=== PATIENT | female | born 1950 | race Hispanic/Latino ===

== ENCOUNTER 2017-09-28 07:44 | Inpatient (IN) | payer BC, MEDICARE ==
[2017-09-28] MEDS ORDERED: Albuterol-Ipratrop 3 mg / 0.5 (3 ml) UD IH STA (08:30)
--- NOTE | 2017-09-28 08:44 | ED PDOC ---
Arrival/HPI - General Chief Complaint: Female Genitourinary Time Seen by Provider: 09/28/17 07:53 Historian: Patient, Spouse - History of Present Illness Narrative History of Present Illness (Text): 09/28/17 08:42 Patient is a 67 yo female past medical history of copd, smoker, presents to ED from Dr. Ferguson's office for evaluation of "depression". Patient states "I've been depressed" but states over the past two weeks she has had difficulty with urinary incontinence and "over the past couple days she has been more confused and hasn't been acting herself". She reports chronic shortness of breath and states she is "short of breath all the time". She denies headache or chest pain or abdominal pain. She reports foul-smelling urine. Also reports back pain that has been present on and off for several months. Denies hemoptysis. Denies hematuria. Denies calf pain or swelling. Time/Duration: > week Symptom Onset: Gradual Symptom Course: Worsening Activities at Onset: Light Past Medical History - Provider Review Nursing Documentation Reviewed: Yes - Tetanus Immunization Tetanus Immunization: Unknown - Cardiac Hx Hypertension: Yes - Pulmonary Hx Respiratory Disorders: No - Neurological Hx Neurological Disorder: Yes Hx Dementia: Yes - HEENT Hx HEENT Disorder: Yes Hx Cataracts: Yes - Renal Hx Renal Disorder: No - Endocrine/Metabolic Hx Endocrine Disorders: No - Hematological/Oncological Hx Blood Disorders: No - Integumentary Hx Dermatological Disorder: No - Musculoskeletal/Rheumatological Hx Musculoskeletal Disorders: No - Gastrointestinal Hx Gastrointestinal Disorders: No - Genitourinary/Gynecological Hx Genitourinary Disorders: No - Psychiatric Hx Psychophysiologic Disorder: Yes Hx Anxiety: Yes Hx Bipolar Disorder: Yes Hx Depression: Yes Hx Hallucinations: Yes Hx Psychosis: Yes Hx Substance Use: No - Suicidal Assessment Feels Threatened In Home Enviroment: No Family/Social History - Physician Review Nursing Documentation Reviewed: Yes Family/Social History: No Known Family HX Smoking Status: Current Some Days Smoker Hx Alcohol Use: No Hx Substance Use: No Hx Substance Use Treatment: No Allergies/Home Meds Allergies/Adverse Reactions: Allergies No Known Allergies Allergy (Verified 09/28/17 13:11) Home Medications: Home Meds Medication Instructions Recorded Confirmed Aspirin [Aspirin Chewable] 81 mg PO DAILY 09/28/17 09/28/17 Calcium Carbonate/Vitamin D3 1 tab PO DAILY 09/28/17 09/28/17 [Calcium 600-Vit D3 800 Caplet] Donepezil [Aricept] 10 mg PO HS 09/28/17 09/28/17 Haloperidol [Haldol] 2 mg PO TID 09/28/17 09/28/17 Valsartan [Diovan] 160 mg PO DAILY 09/28/17 09/28/17 Review of Systems - Physician Review All systems were reviewed & negative as marked: Yes - Review of Systems Constitutional: Fatigue, Fevers, Night Sweats. absent: Weight Change Eyes: absent: Vision Changes ENT: absent: Hearing Changes Respiratory: SOB, Cough, Sputum, Wheezing Cardiovascular: GOMEZ. absent: Chest Pain, Palpitations, Edema, Calf Pain, Orthopnea, Syncope Gastrointestinal: Appetite Changes. absent: Abdominal Pain Genitourinary Female: Dysuria, Frequency, Urine Output Changes. absent: Hematuria, Vaginal Bleeding, Vaginal Discharge Musculoskeletal: Back Pain. absent: Neck Pain Skin: absent: Rash Neurological: absent: Headache, Dizziness, Focal Weakness Endocrine: absent: Polyuria Hemo/Lymphatic: absent: Easy Bleeding Psychiatric: Depression. absent: Suicidal Ideation Physical Exam - Physical Exam Narrative Physical Exam (Text): Head: Atraumatic. Normocephalic. Eyes: PERRL. EOMI. Conjunctivae are not pale. ENT: Mucous membranes are dry. Oropharynx is clear and symmetric. Neck: Supple. Full ROM. No JVD. No lymphadenopathy. Cardiovascular: Tachycardic. Systolic murmur. Pulmonary/Chest: Mild tachypnea. Dyspneic with any exertion. Bilateral wheezes with rhonchi. No accessory muscle usage. Abdominal: Soft and non-distended. Mild suprapubic pain. No rebound, guarding , or rigidity. No organomegaly. Good bowel sounds. Back: No CVA tenderness. Paraspinal thoracic and lumbar spinal tenderness with no edema or erythema. Extremities: No pitting edema. No cyanosis. No clubbing. Full range of motion in all extremities. No calf tenderness. Skin: Skin is pale, dry. Rectal: no melena or gross bleeding Neurological: Alert, awake, and oriented to person, place, time, and situation. Normal speech. No facial droop. Difficulty ambulating. Motor and sensory exam intact while in stretcher moves all extremities with good strength. Psychiatric: Good eye contact. Normal interaction, affect, and behavior. Reports depression, denies suicidal ideation. Vital Signs Reviewed: Yes Vital Signs Temp Pulse Resp BP Pulse Ox 09/28/17 11:55 115 H 12 100 09/28/17 11:35 98.1 F 09/28/17 10:59 113 H 09/28/17 10:52 98.1 F 09/28/17 09:11 117 H 17 112/66 94 L 09/28/17 09:10 117 H 17 112/66 94 L 09/28/17 08:59 97.8 F 118 H 26 H 114/64 85 L 09/28/17 07:54 97.9 F 118 H 26 H 110/75 60 L Temperature: Afebrile Respiratory Rate: Tachypneic Appearance: Positive for: Ill-Appearing Mental Status: Positive for: Alert and Oriented X 3 Medical Decision Making ED Course and Treatment: 09/28/17 09:02 Patient is a 67 yo female presents from psychiatrist's office for "depression" although is noted to have diffuse wheezing with hypoxia and history of some increased confusion over several days as per family. On current exam she is alert, awake, oriented. No focal deficits noted. I suspect underlying infectious etiology for patient's symptoms, as abnormal cxr noted with elevated WBC. IV antibiotics initiated and patient place on nasal cannula oxygen with improvement in saturations. Other labs pending at this time, will straight cath for UA. PROCEDURE: Chest X-ray Dictator : Nolan Dodge MD Report Date : 09/28/2017 09:19:27 IMPRESSION: Bibasilar infiltrates, probable pneumonia 09/28/17 13:00 Patient on re-exam has improved oxygen saturations after nebulizer and being place on nasal cannula, saturations 96% on nasal cannula. EKG repeated and no acute st elevations noted, although I am concerned of a cardiac component to her symptoms as troponin elevated with elevated BNP. Initial lactate elevated although will not given full 30ml/kg bolus as patient with possible component of CHF. Respiratory status improved after nebulizer. Patient ordered aspirin and lovenox. I reviewed EKG and case with cardiology, covering for Dr. Glass. and patient updated with treatment plan, which will be to admit patient to ICU for suspicion of myocardial infarction, possible sepsis and pneumonia. 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 Cabrera accepts patient to her service covering for her pmd Dr. Sow. - Critical Care Critical Care Minutes: 45 minutes - Lab Interpretations Lab Results: 09/28/17 08:45 09/28/17 08:45 Lab Results 09/28/17 09:40: Phosphorus 3.9, Magnesium 2.3 H 09/28/17 08:45: Chloride 89 L, Sodium 129 L, Potassium 4.2, Carbon Dioxide 32, Anion Gap 12, BUN 30 H, Creatinine 0.6 L, Est GFR ( Amer) > 60, Est GFR ( Non-Af Amer) > 60, Random Glucose 140 H, Calcium 10.1, Total Bilirubin 0.6, AST 50 H, ALT 49, Alkaline Phosphatase 150 H, Lactate Dehydrogenase 591, Total Creatine Kinase 115, Troponin I 0.18 H*, NT-Pro-B Natriuret Pep 8380 H, Total Protein 7.2, Albumin 3.6, Globulin 3.5, Albumin/Globulin Ratio 1.0 L, Triglycerides 77, Cholesterol 129 L, LDL Cholesterol Direct 40, HDL Cholesterol 42 09/28/17 08:45: PT 12.7 H, INR 1.15 H, APTT 27.1 09/28/17 08:45: WBC 25.4 H*, RBC 4.79, Hgb 11.3 L, Hct 35.6 L, MCV 74.3 L, MCH 23.6 L, MCHC 31.7, RDW 14.8 H, Plt Count 324, MPV 9.8, Gran % 94.8 H, Lymph % ( Auto) 1.3 L, [place] % (Auto) 3.9, Eos % (Auto) 0.0 L, Baso % (Auto) 0.0, Gran # 24.12 H, Lymph # 0.3 L, [place] # 1.0 H, Eos # 0.0, Baso # 0.01, Neutrophils % ( Manual) 98 H, Band Neutrophils % 1, Lymphocytes % (Manual) 0 L, Monocytes % ( Manual) 1, Platelet Evaluation Normal, Poikilocytosis (manual Slight, Anisocytosis (manual) Slight 09/28/17 08:45: pO2 48, VBG pH 7.33, VBG pCO2 60.0, VBG HCO3 31.6 H, VBG Total CO2 33.4 H, VBG O2 Sat (Calc) 85.9 H, VBG Base Excess 4.0 H, Chloride 92.0 L, Glucose 147 H, Lactate 3.6 H, FiO2 21 I have reviewed the lab results: Yes - RAD Interpretation Radiology Orders: 09/28/17 08:29 CHEST PORTABLE [RAD] Stat - EKG Interpretation EKG Interpretation (Text): 09/28/17 08:57 EKG at 08:51 sinus tachycardia rate of 119, anterior infarct age undetermined Interpreted by ED Physician: Yes Type: 12 lead EKG - Medication Orders Current Medication Orders: Acetaminophen (Tylenol 325mg Tab) 650 mg PO Q6H PRN PRN Reason: Fever >100.4 F Acetylcysteine (Mucomyst 20% Inhal Poonam (30ml)) 2 ml IH Q12 N[facility]OL[facility] Last Admin: 09/28/17 13:14 Dose: Acetylcysteine (Acetylcysteine 20%) 2 ml IH [id number] [place] Albuterol/Ipratropium (Duoneb 3 Mg/0.5 Mg (3 Ml) Ud) 3 ml IH Q2H PRN PRN Reason: Shortness of Breath Albuterol/Ipratropium (Duoneb 3 Mg/0.5 Mg (3 Ml) Ud) 3 ml IH [id number] [facility] Last Admin: 09/28/17 13:09 Dose: 3 ml Aspirin (Aspirin Chewable) 81 mg PO DAILY [facility] Last Admin: 09/28/17 10:43 Dose: 81 mg Atorvastatin Calcium (Lipitor) 20 mg PO DIN [facility] Last Admin: 09/28/17 17:44 Dose: 20 mg Donepezil HCl (Aricept) 10 mg PO HS [facility] Haloperidol (Haldol) 2 mg PO TID [facility] PRN Reason: Protocol Last Admin: 09/28/17 17:55 Dose: 2 mg Behavioural Document 09/28/17 17:55 RAMOM (Rec: 09/28/17 17:55 [facility] [id number] Maintenance Maintenance Dose Yes Nonmedicinal Nonmedicinal Interventions Redirect Behavior Behavior for Medication: Anxiety Heparin Sodium (Porcine) (Heparin) 5,000 units SC Q8H N[place]OL[facility] PRN Reason: Protocol Last Admin: 09/28/17 13:28 Dose: 5,000 units MAR aPTT Document 09/28/17 13:28 RAMOM (Rec: 09/28/17 13:28 [id number] aPTT aPTT (secs) 27.1 Subcutaneous Administrations Document 09/28/17 13:28 RAMOM (Rec: 09/28/17 13:28 [facility] [id number] Injection Site MAR Injection Site Right Abdomen Charges for Administration # of Subcutaneous Administrations 1 Ceftriaxone Sodium (Rocephin 1 Gram Ivpb) 1 gm in 100 mls @ 100 mls/hr IVPB DAILY NICOLLE PRN Reason: Protocol Azithromycin (Zithromax 500mg In Ns) 500 mg in 250 mls @ 167 mls/hr IVPB DAILY NIOCL[facility] PRN Reason: Protocol Methylprednisolone (Solu-Medrol) 40 mg IVP Q12 [facility] Last Admin: 09/28/17 13:28 Dose: 40 mg IVP Administration Document 09/28/17 13:28 RAMOM (Rec: 09/28/17 13:28 [id number] Charges for Administration # of IVP Administrations 1 Methylprednisolone (Solu-Medrol) 40 mg IV Q12 [facility] Metoprolol Succinate (Toprol Xl) 25 mg PO BRK [facility] Ondansetron HCl (Zofran Inj) 4 mg IVP Q6H PRN PRN Reason: Nausea/Vomiting Pantoprazole Sodium (Protonix Ec Tab) 40 mg PO 0630 [facility] Discontinued Medications Albuterol/Ipratropium (Duoneb 3 Mg/0.5 Mg (3 Ml) Ud) 3 ml IH STAT STA Stop: 09/28/17 08:31 Last Admin: 09/28/17 08:35 Dose: 3 ml Aspirin (Aspirin Chewable) 81 mg PO STAT STA Stop: 09/28/17 09:31 Last Admin: 09/28/17 10:39 Dose: Aspirin (Aspirin Chewable) 81 mg PO DAILY [facility] Enoxaparin Sodium (Lovenox) 60 mg SC STAT STA PRN Reason: Protocol Stop: 09/28/17 09:46 Last Admin: 09/28/17 10:43 Dose: 60 mg Subcutaneous Administrations Document 09/28/17 10:43 SF (Rec: 09/28/17 10:44 SF [id number]) Injection Site MAR Injection Site Right Abdomen Charges for Administration # of Subcutaneous Administrations 1 Ceftriaxone Sodium (Rocephin 1 Gram Ivpb) 1 gm in 100 mls @ 200 mls/hr IVPB ONCE STA PRN Reason: Protocol Stop: 09/28/17 09:20 Last Admin: 09/28/17 09:01 Dose: 200 mls/hr eMAR Start Stop Document 09/28/17 09:01 RR (Rec: 09/28/17 09:01 RR [id number]) Intravenous Solution Start Date 09/28/17 Start Time 09:01 End Date 09/28/17 End time 09:31 Total Infusion Time 30 Azithromycin (Zithromax 500mg In Ns) 500 mg in 250 mls @ 166.667 mls/hr IVPB STAT STA PRN Reason: Protocol Stop: 09/28/17 10:20 Last Admin: 09/28/17 09:42 Dose: 166.667 mls/hr eMAR Start Stop Document 09/28/17 09:42 SF (Rec: 09/28/17 09:43 SF [id number]) Intravenous Solution Start Date 09/28/17 Start Time 09:42 End Date 09/28/17 End time 11:12 Total Infusion Time 90 Sodium Chloride (Sodium Chloride 0.9%) 1,000 mls @ 1,000 mls/hr IV .Q1H STA Stop: 09/28/17 10:07 Last Admin: 09/28/17 09:41 Dose: 1,000 mls/hr eMAR Start Stop Document 09/28/17 09:41 SF (Rec: 09/28/17 09:41 SF [id number]) Intravenous Solution Start Date 09/28/17 Start Time 09:30 End Date 09/28/17 End time 10:30 Total Infusion Time 60 Pneumococcal Polyvalent Vaccine (Pneumovax 23 Vaccine) 0.5 ml IM .ONCE ONE Stop: 09/28/17 16:03 Disposition/Present on Arrival - Present on Arrival Any Indicators Present on Arrival: No History of DVT/PE: No History of Uncontrolled Diabetes: No Urinary Catheter: No History of Decub. Ulcer: No History Surgical Site Infection Following: None - Disposition Have Diagnosis and Disposition been Completed?: Yes Diagnosis: Pneumonia, Sepsis, Congestive heart failure, Leukocytosis, Urinary incontinence , Elevated troponin, UTI (urinary tract infection) Disposition: HOSPITALIZED Disposition Time: 09:30 Patient Plan: Admission, ICU Patient Problems: Current Active Problems Problem Status Onset Congestive heart failure Acute Elevated troponin Acute Leukocytosis Acute Pneumonia Acute Sepsis Acute UTI (urinary tract infection) Acute Urinary incontinence Acute Condition: CRITICAL
[2017-09-28] MEDS ORDERED: cefTRIAXone 1 gm 1 GM/100 ML BAG IVPB STA (08:51)
[2017-09-28] MEDS ORDERED: Azithromycin 500MG/NS 250ml 500 MG/250 ML BAG IVPB STA (08:51)
[2017-09-28 09:03] LABS: BASO # 0.01 K/mm3 (0.0-2.0); GRAN # 24.12 (1.4-6.5); GRAN % 94.8 % (50.0-68.0); HEMATOCRIT 35.6 % (36.0-48.0); LYMPH # 0.3 (1.2-3.4); LYMPH % 1.3 % (22.0-35.0); MEAN CELL VOLUME 74.3 fl (80.0-105.0); MEAN CORPUSCULAR HEMOGLOBIN 23.6 pg (25.0-35.0); MEAN CORPUSCULAR HGB CONC 31.7 g/dl (31.0-37.0); MEAN PLATELET VOLUME 9.8 fl (7.0-11.0); MONO % 3.9 % (1.0-6.0); PLATELET COUNT 324 10^3/uL (120.0-450.0); RED CELL DISTRIBUTION WIDTH 14.8 % (11.5-14.5)
[2017-09-28 09:06] LABS: WHITE BLOOD COUNT 25.4 10^3/ul (4.5-11.0)
[2017-09-28] MEDS ORDERED: Sodium Chloride 0.9% 1,000 ML IV STA (09:08)
[2017-09-28 09:13] LABS: INR 1.15 (0.93-1.08)
[2017-09-28 09:14] LABS: PARTIAL THROMBOPLASTIN TIME 27.1 Seconds (25.1-36.5)
[2017-09-28 09:15] LABS: ALKALINE PHOSPHATASE 150 U/L (38-126); ALT/SGPT 49 U/L (7-56); AST/SGOT 50 U/L (14-36); BILIRUBIN,TOTAL 0.6 mg/dL (0.2-1.3); BLOOD UREA NITROGEN 30 mg/dL (7-21); CALCIUM 10.1 mg/dL (8.4-10.5); CARBON DIOXIDE 32 mmol/L (21-33); CHLORIDE 89 mmol/L (98-107); GFR AFRICAN-AMERICAN > 60; GLUCOSE,RANDOM 140 mg/dL (70-110); POTASSIUM 4.2 mmol/L (3.6-5.0); SODIUM 129 mmol/L (132-148); TOTAL PROTEIN 7.2 g/dL (5.8-8.3)
--- NOTE | 2017-09-28 09:21 | RAD ---
HISTORY: sob COMPARISON: 11/22/2012 FINDINGS: LUNGS: Bibasilar infiltrates are seen. The upper lobes are clear PLEURA: No significant pleural effusion identified, no pneumothorax apparent. CARDIOVASCULAR: Normal. OSSEOUS STRUCTURES: No significant abnormalities. VISUALIZED UPPER ABDOMEN: Normal. OTHER FINDINGS: None. IMPRESSION: Bibasilar infiltrates, probable pneumonia
[2017-09-28 09:25] LABS: VENOUS BLOOD PH 7.33 (7.32-7.43)
[2017-09-28 09:30] LABS: TROPONIN I 0.18 ng/mL
[2017-09-28 09:38] LABS: ANISOCYTOSIS SLIGHT; BAND 1 % (0-2); NEUTROPHIL 98 % (50.0-70.0); PLATELET ESTIMATE NORMAL (NORMAL); POIKILOCYTOSIS SLIGHT
[2017-09-28] MEDS ORDERED: Enoxaparin 60 mg Syringe SC STA (09:45)
[2017-09-28 10:25] LABS: MAGNESIUM 2.3 mg/dL (1.7-2.2); PHOSPHOROUS 3.9 mg/dL (2.5-4.5)
[2017-09-28] MEDS ORDERED: Albuterol-Ipratrop 3 mg / 0.5 (3 ml) UD IH PRN (10:29)
[2017-09-28 10:30] LABS: URINE APPEARANCE SL CLOUDY (CLEAR); URINE BILIRUBIN NEGATIVE (NEGATIVE); URINE BLOOD MODERATE (NEGATIVE); URINE COLOR YELLOW (YELLOW); URINE GLUCOSE (UA) NEGATIVE (NEGATIVE); URINE KETONE TRACE mg/dL (NEGATIVE); URINE LEUKOCYTE ESTERASE NEGATIVE Leu/uL (NEGATIVE); URINE PROTEIN >=300 mg/dL (<30 mg/dL); URINE UROBILINOGEN 0.2 E.U./dL (<1 E.U./dL)
[2017-09-28 10:31] LABS: ARTERIAL BLOOD GAS HCO3 29.3 mmol/L (21-28); ARTERIAL BLOOD GAS PH 7.29 (7.35-7.45)
[2017-09-28 11:06] LABS: URINE BACTERIA MOD (NEG); URINE RBC 0 - 2 /hpf (0-2)
[2017-09-28 11:07] LABS: URINE EPITHELIAL CELLS 0 - 2 /hpf (0-5)
[2017-09-28 12:30] LABS: VENOUS BLOOD GAS BASE EXCESS 3.1 mmol/L (0.0-2.0); VENOUS BLOOD PH 7.24 (7.32-7.43)
[2017-09-28 12:59] LABS: CHOLESTEROL 129 mg/dL (130-200)
--- NOTE | 2017-09-28 13:08 | PCM.SEPTIC ---
Sepsis Progress Note - Reassessment Type Date of Evaluation: 09/28/17 Time of Evaluation: 13:08 Reassessment Type: Non-invasive reassessment - Non Invasive Reassessment Were the most recent vital sign reviewed: Yes Vital Sign (Latest): Temp Pulse Resp BP Pulse Ox 98.1 F 115 H 12 112/66 100 09/28/17 11:35 09/28/17 11:55 09/28/17 11:55 09/28/17 09:11 09/28/17 11:55 Cardiovascular: Yes: Regular Rate, Rhythm, Tachycardia Respiratory: Yes: Normal Breath Sounds. No: Crackles, Rales, Rhonchi, Respiratory Distress Capillary Refill: Normal (Less than 2 sec) Skin: Normal Color, Warm, Dry
[2017-09-28] MEDS: Albuterol-Ipratrop 3 mg / 0.5 (3 ml) UD IH SCH ×2 (13:09→19:44)
[2017-09-28] MEDS: Acetylcysteine 20% Inhal Sol (30ml) IH SCH ×2 (13:14→22:00)
[2017-09-28] MEDS: MethylPREDNISolone 40 mg Vial IVP SCH (13:28)
--- NOTE | 2017-09-28 13:46 | CON ---
DATE: CARDIOLOGY CONSULTATION REASON FOR CONSULTATION: Abnormal EKG with borderline troponin elevation. HISTORY OF PRESENT ILLNESS: The patient is a 67-year-old white female with a history of chronic obstructive lung disease. The patient is a smoker who presented because of shortness of breath and cough. The patient has medications for emphysema at home, but was never on nasal home O2. The patient is unaware of any prior cardiac history. The patient, according to son, sustained a fall few months ago and had some sort of spinal fracture that was treated with a brace and the patient did not require any surgery. The patient denies any recurrence of her fall following that. The patient denies any retrosternal chest pain. SOCIAL HISTORY: The patient is a smoker. She lives with her . HOME MEDICATIONS: Include Haldol, vitamin D, aspirin, Diovan, and Aricept. CURRENT MEDICATIONS: In hospital; Aricept 10 mg once a day, aspirin 81 mg once a day, albuterol inhaler q.2 hours p.r.n., Haldol 2 mg p.o. t.i.d., Protonix 40 mg p.o. once a day, Rocephin 1 g intravenously daily, Toprol-XL 25 mg once a day, Zofran 4 mg intravenously q.6 hours p.r.n., and Zithromax 500 mg intravenously daily. REVIEW OF SYSTEMS: No fever or chills. No vomiting or diarrhea. No recent dizziness or syncope. PHYSICAL EXAMINATION: GENERAL: The patient is an elderly female, who does not appear to be in acute distress, but is mildly tachypneic. VITAL SIGNS: Blood pressure 112/66, heart rate 117, temperature 98.1, and respirations 17. HEENT: Normocephalic. CHEST: Absent sounds over the right base with scattered bilateral rhonchi. HEART: S1 and S2 regular. ABDOMEN: Soft. EXTREMITIES: No edema. LABORATORY DATA: Hemoglobin and hematocrit 11.3 and 35.6, white count 25.4, and platelets count 324,000. SMA-7; sodium 129, potassium 4.2, chloride 89, CO2 32, glucose 140, BUN 30, and creatinine 0.6. Troponin 0.18. ProBNP is 8380. EKG, this is the second EKG in the ER that revealed sinus tachycardia at the rate of 119 with poor R-wave progression. The first EKG revealed sinus tachycardia at the rate of 119 with poor R-wave progression. Chest x-ray reported bibasilar infiltrates probably pneumonia. ASSESSMENT: 1. Bilateral pneumonia. 2. Chronic obstructive lung disease. 3. Borderline troponin elevation, rule out non-ST elevation myocardial infarction. 4. Congestive heart failure. 5. Uncontrolled diabetes mellitus. RECOMMENDATIONS: Case was discussed with the kiln transfer operator. The patient will be admitted to the ICU. Chest CT scan will be obtained. Continue current aspirin 81 mg once a day, IV Zithromax, and IV Rocephin. Continue current Toprol-XL at 25 mg once a day. Start Lipitor at 20 mg once a day. Obtain an echocardiogram. Start subcutaneous heparin at 5000 units q.8 hours. Obtain two sets of blood cultures. Hai Davis MD
[2017-09-28 16:02] VITALS: BMI 22.3
[2017-09-28] MEDS ORDERED: Influenza Vaccine 60 mcg/0.5 mL SYR (4YR UP) IM ONE (16:02)
[2017-09-28] MEDS ORDERED: Pneumococcal 23-Valent Vaccine IM ONE (16:02)
--- NOTE | 2017-09-28 16:06 | HP ---
HISTORY OF PRESENT ILLNESS: The patient is 67 years old, seen and examined, was brought to emergency room because of increasing shortness of breath. The patient is on BiPAP and high-flow oxygen. History is taken from the . She denies any chest pain. Does complain of shortness of breath. Does complain of cough and congestion. No nausea or vomiting. No diarrhea. According to family member, a few months ago, she had a fall and sustained back injury, but was treated conservatively. She has significant past medical history for COPD and bipolar disorder. SOCIAL HISTORY: She is . She is an active smoker. She lives with her . MEDICATIONS AT HOME: She is on Haldol 2 mg 3 times a day, vitamin D, aspirin 81 daily, Aricept 10 mg daily and valsartan 160 daily. REVIEW OF SYSTEMS: Significant for shortness of breath. PHYSICAL EXAMINATION: GENERAL: She is awake, alert, oriented and answers simple question. VITAL SIGNS: She is afebrile, pulse 112, respirations 26, blood pressure 124/77. LUNGS: Bilateral diffusely decreased breath sound. HEART: S1 and S2 audible. ABDOMEN: Soft, nontender. No rebound. No guarding. NEUROLOGIC: She is awake, alert, oriented, communicative. LABORATORY DATA: WBC 25.4, hemoglobin 11.3, hematocrit 35.6, platelet of 324. Chemistry: Sodium 129, potassium 4.2, chloride 89, CO2 of 32, BUN 30, creatinine 0.6, blood sugar 140, magnesium 2.3, AST 50, ALT 49. Troponin 0.18 and followup is 0.13. BNP is 8380. Urinalysis shows moderate blood, negative leukocyte. X-ray chest shows bibasilar infiltrate. ASSESSMENT: 1. Bilateral pneumonia. 2. Chronic obstructive pulmonary disease exacerbation. 3. History of chronic obstructive pulmonary disease. 4. Asthmatic bronchitis. 5. Bipolar disorder. 6. Active smoker. 7. Mild dementia. 8. [id number] myocardial infarction. PLAN: The patient is currently on Rocephin and Zithromax. We will continue nebulizer treatment. I will add small dose of steroids. She is on DVT prophylaxis. We will continue her psych medication. We will reevaluate the patient in the a.m. Currently, she is being admitted in ICU. Santosh Cabrera MD
--- NOTE | 2017-09-28 16:11 | CON ---
DATE: 09/28/2017 COUNCILOR CONSULTATION REQUESTING PHYSICIAN: Santosh Cabrera MD. CHIEF COMPLAINT: The patient presented with respiratory failure, cough,congestion and being confused over the last several days. HISTORY OF PRESENT ILLNESS: Ms. Hendrix, she is a 67-year-old female that has a history of COPD and smoking and was at her psychiatrist's office today for which she is diagnosed depression, anxiety, and schizophrenia and had stated that she has been having problems with urinary complaints and some confusion over the last several days. She was told to come to the emergency room where we noted that she had shortness of breath, cough, congestion, but is oriented x3, alert and awake. The patient was also noted to have positive troponin and increased BNP. Arterial blood gas reveals that she is hypercapnic as well as has respiratory acidosis. At this time, no present fever, but there was questionable history of fever at home. No nauseousness or vomiting. No chest pain. No abdominal pain. No diarrhea. PAST MEDICAL HISTORY: Significant for COPD, schizophrenia as well as anxiety and depression. Past medical history is as above. ALLERGIES: SHE HAS NO KNOWN ALLERGIES. CURRENT MEDICATIONS: Can be elevated as per the nurse's intake form. FAMILY HISTORY: Noncontributory. SOCIAL HISTORY: She is a current smoker. No ETOH abuse. No drug abuse. REVIEW OF SYSTEMS: CONSTITUTIONAL: The patient has had some fatigue. Some fevers and night sweats at home. HEENT: Within normal limits. RESPIRATORY: She has shortness of breath, cough, chest congestion. CARDIOVASCULAR: Does have some dyspnea on exertion, but no chest pain. GASTROINTESTINAL: Has decreased appetite. GENITOURINARY: Complains of difficulty urinating and frequency. MUSCULOSKELETAL: Negative. NEUROPSYCHIATRIC: The patient had been confused as per family. ENDOCRINE: All negative. HEMATOLOGIC: All negative. IMMUNOLOGIC: All negative. INTEGUMENTARY: All negative. PHYSICAL EXAMINATION: VITAL SIGNS: Temperature is 98.1, pulse is 113, respirations are 17, blood pressure 112/66, O2 pulse ox is 94% on BiPAP mask and O2 support. HEENT: Head is atraumatic, normocephalic. Eyes, reactive to light. Ear, nose and throat seem to be within normal limits. NECK: Supple. No JVD. No thyroid enlargement. No lymph nodes. HEART: Regular rate and rhythm. Normal S1 and S2, but slightly tachycardic. LUNGS: Reveal bilateral rhonchi with occasional expiratory wheeze. ABDOMEN: Soft, decreased bowel sounds. GENITALIA AND RECTAL: Deferred. MUSCULOSKELETAL: No joint deformity. EXTREMITIES: Trace lower extremity edema. NEUROLOGIC: She seem to be grossly intact. LABORATORY DATA: Her white count is 25.4, hemoglobin 11.3, hematocrit 35.6 with platelets of 324,000. Her sodium is 129, potassium 4.2, chloride 89, CO2 of 32 with BUN of 30, creatinine 0.6 and glucose of 140. The patient has troponin of 0.18 initially and repeat was 0.13. BNP is 8380. Her chest x-rays reveals bilateral infiltrates. IMPRESSION: This patient has pneumonia with increased white count and fevers at home, we must rule out sepsis as well. She has respiratory insufficiency with hypercapnia and respiratory acidosis. She has history of severe chronic obstructive pulmonary disease. It is noted that she has hyponatremia and urinary incontinence with possible urinary tract infection. The patient has increased BNP and there may be a component of congestive heart failure as well. We must rule out myocardial infarction as well with increased troponins. She has a history of schizophrenia as well as anxiety and depression. As far as our plan, we will continue BiPAP with pressors of 10/5 with O2 support and follow her O2 saturations, arterial blood gas and chest x-ray closely. The patient has been started on DuoNeb as well as Haldol and heparin subcutaneous. She is on antibiotics of Rocephin and as been started on Protonix as well. We will give Tylenol for any fever, and she is on Zithromax for antibiotics and Zofran for any nauseousness and vomiting. We will start Solu-Medrol, Mucomyst and chest PT. Sohail Cage MD
[2017-09-28] MEDS: Acetylcysteine 20% Inhal Soln (4ml) IH SCH (19:44)
[2017-09-28] MEDS: MethylPREDNISolone 40 mg Vial IV SCH (21:03)
[2017-09-29] MEDS: Albuterol-Ipratrop 3 mg / 0.5 (3 ml) UD IH SCH ×4 (01:50→19:50)
[2017-09-29 05:39] LABS: ARTERIAL BLOOD GAS O2 CAPACITY 16.3 mL/dl (16-24); ARTERIAL BLOOD GAS PH 7.27 (7.35-7.45); ARTERIAL BLOOD HGB O2 SAT 94.8 % (95.0-98.0); CARBOXYHEMOGLOBIN 2.5 % (0.5-1.5); HHB 1.7 % (0-5)
[2017-09-29] MEDS: Pantoprazole 40 mg EC Tab PO SCH (06:08)
[2017-09-29 06:13] LABS: BASO # 0.01 K/mm3 (0.0-2.0); GRAN # 21.55 (1.4-6.5); GRAN % 96.1 % (50.0-68.0); HEMATOCRIT 34.8 % (36.0-48.0); LYMPH # 0.2 (1.2-3.4); LYMPH % 0.9 % (22.0-35.0); MEAN CORPUSCULAR HEMOGLOBIN 23.6 pg (25.0-35.0); MEAN PLATELET VOLUME 9.6 fl (7.0-11.0); MONO # 0.7 (0.1-0.6); WHITE BLOOD COUNT 22.4 10^3/ul (4.5-11.0)
[2017-09-29 06:47] LABS: FREE T4 1.14 ng/dL (0.78-2.19)
[2017-09-29 06:53] LABS: ALKALINE PHOSPHATASE 155 U/L (38-126); ALT/SGPT 60 U/L (7-56); AST/SGOT 65 U/L (14-36); BILIRUBIN,TOTAL 0.4 mg/dL (0.2-1.3); BLOOD UREA NITROGEN 20 mg/dL (7-21); CALCIUM 8.9 mg/dL (8.4-10.5); CARBON DIOXIDE 35 mmol/L (21-33); CHLORIDE 94 mmol/L (98-107); GFR AFRICAN-AMERICAN > 60; GLUCOSE,RANDOM 123 mg/dL (70-110); POTASSIUM 4.6 mmol/L (3.6-5.0); SODIUM 133 mmol/L (132-148); TOTAL PROTEIN 6.6 g/dL (5.8-8.3)
[2017-09-29] MEDS: Acetylcysteine 20% Inhal Soln (4ml) IH SCH ×2 (07:00→19:50)
[2017-09-29 07:01] LABS: THYROID STIMULATING HORMONE 0.72 mIU/mL (0.46-4.68)
[2017-09-29] MEDS: Metoprolol Succinate 25 mg XL Tab PO SCH (07:59)
--- NOTE | 2017-09-29 08:47 | CARD ---
APPROVED REPORT EKG Measurement Heart [id number] [place] [id number] <Conclusion> Sinus tachycardia PRWP V 1 - 4 NSSTW changes No change
--- NOTE | 2017-09-29 08:49 | CARD ---
APPROVED REPORT EKG Measurement Heart [id number] DC 130P63 [id number] <Conclusion> Sinus tachycardia PRWP V 1 - 4 NSSTW changes No change
[2017-09-29] MEDS: Azithromycin 500MG/NS 250ml 500 MG/250 ML BAG IVPB SCH (09:47)
[2017-09-29] MEDS: MethylPREDNISolone 40 mg Vial IVP SCH (09:48)
--- NOTE | 2017-09-29 10:06 | PN ---
IMAGE CONSULTANT NOTE DATE: 09/29/2017 SUBJECTIVE: The patient is resting in bed, awake and alert, on BiPAP, very comfortable. No respiratory distress this morning. No complaints of chest pain, but still has occasional congestion, wheezing and rhonchi. No fever or chills. No nausea or vomiting. No abdominal pain. No diarrhea. PHYSICAL EXAMINATION: VITAL SIGNS: Note that her temperature is 97.8, pulse is 113, respirations 27, and BP is 168/66. SKIN: Warm and dry. HEENT: Head is atraumatic and normocephalic. Eyes are reactive to light. Ears, nose, and throat seem to be within normal limits. NECK: Supple. No JVD. No thyroid enlargement. No lymph nodes. HEART: Has regular rate and rhythm. Normal S1 and S1, but tachycardic. LUNGS: Reveal decreased breath sounds bilaterally. No significant rales or rhonchi. ABDOMEN: Soft. Decreased bowel sounds. GENITALIA: Deferred. RECTAL: Deferred. MUSCULOSKELETAL: No joint deformities. EXTREMITIES: Reveal trace lower extremity edema. NEUROLOGIC: She seems to be grossly intact. LABORATORY DATA: As far as her laboratories are concerned, her white count is 22.4, hemoglobin is 10.8, hematocrit is 34.8 with platelets of 311,000. Arterial blood gas reveals a pH of 7.27, PCO2 of 74, PO2 of 89, this is on BiPAP. Sodium is 133, potassium 4.6, chloride 94, CO2 of 35 with a BUN of 20, creatinine is 0.5, and a glucose of 123. IMPRESSION: As far as my impression is concerned, this patient has bilateral pneumonia and possible sepsis. She has respiratory failure with hypoxia and hypercapnia and respiratory acidosis. She carries a diagnosis of severe chronic obstructive pulmonary disease and presenting with urinary incontinence, rule out urinary tract infection. She has increased BNP with mild congestive heart failure and rule out myocardial infarction. She dos carry a diagnosis of anxiety, depression, and schizophrenia. PLAN: We will continue without a BiPAP and O2 support. Continue with aggressive pulmonary toilet. We will follow her chest x-ray and arterial blood gas closely. She is on Haldol and subcutaneous heparin. The patient is getting antibiotics of Rocephin as well as Protonix and we will continue the Zithromax as well. She is getting Solu-Medrol. We will continue to treat aggressively along with the other consultants and the primary care doctor. Sohail Cage MD
[2017-09-29] MEDS: cefTRIAXone 1 gm 1 GM/100 ML BAG IVPB SCH (10:36)
--- NOTE | 2017-09-29 10:52 | RAD ---
HISTORY: f/u COMPARISON: 09/28/2017 FINDINGS: LUNGS: There is a new infiltrate along the right lateral chest wall. There is a small effusion. Infiltrate at the left lung base is no longer seen. PLEURA: As above CARDIOVASCULAR: Normal. OSSEOUS STRUCTURES: No significant abnormalities. VISUALIZED UPPER ABDOMEN: Normal. OTHER FINDINGS: None. IMPRESSION: There is a new infiltrate along the right lateral chest wall. There is a small effusion. Infiltrate at the left lung base is no longer seen.
[2017-09-29 11:03] LABS: ARTERIAL BLOOD GAS O2 CAPACITY 13.5 mL/dl (16-24); ARTERIAL BLOOD GAS O2 CONTENT 13.3 ML/dl (15-23); ARTERIAL BLOOD GAS PH 7.35 (7.35-7.45); ARTERIAL BLOOD HGB O2 SAT 95.4 % (95.0-98.0); HHB 1.6 % (0-5)
[2017-09-29] MEDS: MethylPREDNISolone 40 mg Vial IV SCH ×2 (12:11→21:50)
--- NOTE | 2017-09-29 12:44 | PN ---
SUBJECTIVE: The patient is 67-year-old, seen and examined, still on BiPAP, eating and tolerating. No nausea or vomiting. No diarrhea. PHYSICAL EXAMINATION: VITAL SIGNS: She is afebrile, pulse 118, respirations 23, blood pressure 157/79. LUNGS: Bilateral diffusely increased breath sound. HEART: S1 and S2 audible. ABDOMEN: Soft, nontender. No rebound. No guarding. NEUROLOGIC: The patient is awake and alert, able to communicate. Moves all extremities. LABORATORY EXAM: WBC is 22.4, hemoglobin 10.8, hematocrit 34.8, and platelets of 311. Chemistry: Sodium 133, potassium 4.6, chloride 94, CO2 of 35, BUN 20, creatinine 0.5 and blood sugar of 123. AST 65, ALT 60, alk phos 155. X-ray chest was done that shows new infiltrate along the right lateral chest wall, small effusion inflated to the left lung base. ASSESSMENT: 1. Bilateral pulmonary infiltrate. 2. Chronic obstructive pulmonary disease. 3. Leukocytosis. 4. Hypoxia. 5. Bipolar disorder. PLAN: We will continue the patient on current antibiotic nebulizer treatment. She is on DVT prophylaxis. She is getting Rocephin. She is on IV steroid. We will reevaluate the patient in a.m. Santosh Cabrera MD
--- NOTE | 2017-09-29 15:11 | PN ---
DATE: SUBJECTIVE: The patient is mildly short of breath, undergoing nebulizer treatment. No reports of hypotension or ventricular arrhythmia. PHYSICAL EXAMINATION: VITAL SIGNS: Blood pressure 157/79, heart rate 111, respirations 18, and temperature 97.8. HEENT: Pale conjunctivae. CHEST: Bibasilar coarse crepitations. HEART: S1 and S2 regular. EXTREMITIES: No edema. LABORATORY DATA: Hemoglobin and hematocrit 10.8 and 34.8, white count 22.4, and platelet count 311,000. Chest x-ray revealed new infiltrate along the right lateral chest wall. There is a small effusion. Infiltrate at the left lung base is no longer seen. ASSESSMENT: 1. Right lower lobe pneumonia with prior pneumonic effusion. 2. Borderline troponin elevation rule out non-ST elevation myocardial infarction. 3. Chronic obstructive lung disease. 4. Rule out underlying sepsis. 5. History of recent fall and spinal fracture. 6. Uncontrolled diabetes mellitus. RECOMMENDATIONS: Continue current aspirin 81 mg once a day, Flagyl 500 mg p.o. q.8 hours, heparin 5000 units q.8 hours, Rocephin 1 g intravenously daily, Solu-Medrol 40 mg intravenously q. 12 hours, and Toprol-XL 25 mg once a day. Start Lipitor 20 mg orally once a day. Obtain a bedside echocardiogram and repeat 12-lead EKG today. Hai Davis MD
--- NOTE | 2017-09-29 18:54 | CON ---
DATE: 09/29/2017 LOCATION: The patient seen in ICU, bed #6. CHIEF COMPLAINT: Shortness of breath and cough times several days. HISTORY OF PRESENT ILLNESS: This is a 67-year-old female who continuous to be an active smoker with chronic obstructive lung disease, history of hypertension, mild dementia, depression, and cataracts, who was admitted with a diagnosis of pneumonia and myocardial infarction, Infectious Disease consultation requested. REVIEW OF SYSTEMS: Reveals the patient to have low-grade fevers. The patient did have shortness of breath and no chest pain at this time. No abdominal pain, diarrhea, or constipation. There is dysuria, there is frequency, and no new back pain. PAST MEDICAL HISTORY: Significant for chronic obstructive lung disease, active smoker, depression, cataracts, hypertension, dementia. PAST SURGICAL HISTORY: Significant for cataract surgery bilaterally. ALLERGIES: THE PATIENT HAS NO KNOWN ALLERGIES. MEDIATIONS: At home include Haldol, Aricept, vitamin D, aspirin, and valsartan which is Diovan. PHYSICAL EXAMINATION: VITAL SIGNS: The patient is in bed with a temperature of 97, heart rate of 108, respiratory rate of 24, blood pressure is 150/70, and pulse oximetry is 93. HEENT: Unremarkable. NECK: Supple. LUNGS: Decreased breath sounds. HEART: Normal S1 and S2. ABDOMEN: Soft, nontender. No rebound, no guarding, no masses. LABORATORY EXAMINATION: Reveals a white count of 25,000 with 94% granulocytosis. Coagulation is noted. Chemistries are noted and BUN of 20, creatinine of 0.5. LFTs are elevated. Alk phos is elevated at 150. Troponins are elevated. The BNP is high. ASSESSMENT AND PLAN: A 67-year-old female with chronic obstructive lung disease, smoker, continuous to be a smoker, depression, cataracts, hypertension, and mild dementia admitted with sepsis what appears to be a bilateral community-acquired pneumonia with chest x-ray that is positive, and the patient with acute congestive heart failure, must also rule out GI pathology and gallbladder disease. We will check on the patient's sputum culture. Thus far the blood cultures are negative. Urine cultures are negative. Sputum cultures are pending. We have ordered urine for Legionella antigen, check on the sputum culture. We have ordered a procalcitonin. Continue ceftriaxone and Zithromax and add Flagyl. I ordered an ultrasound of abdomen for gallbladder disease. If unremarkable, may consider a CAT scan of the abdomen and pelvis. Case discussed with Dr Cage, the hospitalist today, and the ICU. We will make further recommendations. Pierre Cotter MD
[2017-09-30] MEDS: Albuterol-Ipratrop 3 mg / 0.5 (3 ml) UD IH SCH ×4 (02:30→20:20)
[2017-09-30 07:03] LABS: ARTERIAL BLOOD GAS HCO3 34.2 mmol/L (21-28); ARTERIAL BLOOD GAS O2 CAPACITY 13.1 mL/dl (16-24); ARTERIAL BLOOD GAS PH 7.41 (7.35-7.45); ARTERIAL BLOOD HGB O2 SAT 96.7 % (95.0-98.0); CARBOXYHEMOGLOBIN 1.9 % (0.5-1.5); HHB 0.5 % (0-5)
[2017-09-30 07:05] LABS: BASO # 0.01 K/mm3 (0.0-2.0); BASO % 0.1 % (0.0-3.0); GRAN # 17.87 (1.4-6.5); GRAN % 94.9 % (50.0-68.0); HEMATOCRIT 33.9 % (36.0-48.0); LYMPH # 0.4 (1.2-3.4); LYMPH % 1.9 % (22.0-35.0); MEAN CELL VOLUME 76.2 fl (80.0-105.0); MEAN CORPUSCULAR HEMOGLOBIN 23.4 pg (25.0-35.0); MEAN CORPUSCULAR HGB CONC 30.7 g/dl (31.0-37.0); MEAN PLATELET VOLUME 9.7 fl (7.0-11.0); MONO # 0.6 (0.1-0.6); MONO % 3.1 % (1.0-6.0); RED CELL DISTRIBUTION WIDTH 15.2 % (11.5-14.5); WHITE BLOOD COUNT 18.8 10^3/ul (4.5-11.0)
[2017-09-30] MEDS: Pantoprazole 40 mg EC Tab PO SCH (07:30)
[2017-09-30 07:31] LABS: ALKALINE PHOSPHATASE 148 U/L (38-126); ALT/SGPT 171 U/L (7-56); AST/SGOT 178 U/L (14-36); BILIRUBIN,TOTAL 0.4 mg/dL (0.2-1.3); BLOOD UREA NITROGEN 18 mg/dL (7-21); CALCIUM 8.7 mg/dL (8.4-10.5); CARBON DIOXIDE 38 mmol/L (21-33); CHLORIDE 93 mmol/L (98-107); GFR AFRICAN-AMERICAN > 60; GLUCOSE,RANDOM 140 mg/dL (70-110); MAGNESIUM 2.3 mg/dL (1.7-2.2); POTASSIUM 4.7 mmol/L (3.6-5.0); SODIUM 135 mmol/L (132-148); TOTAL PROTEIN 6.4 g/dL (5.8-8.3)
[2017-09-30] MEDS: Acetylcysteine 20% Inhal Soln (4ml) IH SCH ×2 (07:55→20:20)
[2017-09-30] MEDS: Metoprolol Succinate 25 mg XL Tab PO SCH (08:04)
--- NOTE | 2017-09-30 08:57 | RAD ---
HISTORY: f/u COMPARISON: 09/29/2017 FINDINGS: LUNGS: There is an infiltrate at the right lung base. This is unchanged. PLEURA: No significant pleural effusion identified, no pneumothorax apparent. CARDIOVASCULAR: Normal. OSSEOUS STRUCTURES: No significant abnormalities. VISUALIZED UPPER ABDOMEN: Normal. OTHER FINDINGS: None. IMPRESSION: Infiltrate at the right lung base unchanged
[2017-09-30] MEDS: cefTRIAXone 1 gm 1 GM/100 ML BAG IVPB SCH (09:18)
[2017-09-30] MEDS: MethylPREDNISolone 40 mg Vial IV SCH ×2 (09:50→21:42)
[2017-09-30] MEDS: Azithromycin 500MG/NS 250ml 500 MG/250 ML BAG IVPB SCH (09:50)
--- NOTE | 2017-09-30 09:54 | CARD ---
APPROVED REPORT EKG Measurement Heart [id number] W[place] 122P68 [id number] <Conclusion> Sinus tachycardia Otherwise normal ECG No change
--- NOTE | 2017-09-30 10:20 | CP.PCM.PN ---
Subjective - Date & Time of Evaluation Date of Evaluation: 09/30/17 Time of Evaluation: 07:15 - Subjective Subjective: Patient seen and examined, reports no major complaints. Taken off bipap this morning, tolerating 2LNC, well, no major complaints. Objective - Vital Signs/Intake and Output Vital Signs (last 24 hours): Temp Pulse Resp BP Pulse Ox 98.4 F 98 H 28 H 137/53 L 90 L 09/30/17 04:00 09/30/17 08:04 09/30/17 06:00 09/30/17 08:04 09/30/17 06:00 Intake and Output: 09/30/17 09/30/17 06:59 18:59 Intake Total 500 Output Total 0 Balance 500 - Medications Medications: Current Medications Acetylcysteine (Acetylcysteine 20%) 2 ml IH [id number] [facility] Last Admin: 09/30/17 07:55 Dose: 2 ml Albuterol/Ipratropium (Duoneb 3 Mg/0.5 Mg (3 Ml) Ud) 3 ml IH Q2H PRN PRN Reason: Shortness of Breath Albuterol/Ipratropium (Duoneb 3 Mg/0.5 Mg (3 Ml) Ud) 3 ml IH [id number] [facility] Last Admin: 09/30/17 07:55 Dose: 3 ml Aspirin (Aspirin Chewable) 81 mg PO DAILY [facility] Last Admin: 09/30/17 09:49 Dose: 81 mg Atorvastatin Calcium (Lipitor) 20 mg PO DIN [facility] Last Admin: 09/29/17 17:40 Dose: 20 mg Donepezil HCl (Aricept) 10 mg PO HS [facility] Last Admin: 09/29/17 21:50 Dose: 10 mg Haloperidol (Haldol) 2 mg PO TID [facility] PRN Reason: Protocol Last Admin: 09/30/17 09:49 Dose: 2 mg Heparin Sodium (Porcine) (Heparin) 5,000 units SC Q8H [facility] PRN Reason: Protocol Last Admin: 09/30/17 05:22 Dose: 5,000 units Ceftriaxone Sodium (Rocephin 1 Gram Ivpb) 1 gm in 100 mls @ 100 mls/hr IVPB DAILY [facility] PRN Reason: Protocol Last Admin: 09/30/17 09:18 Dose: 100 mls/hr Azithromycin (Zithromax 500mg In Ns) 500 mg in 250 mls @ 167 mls/hr IVPB DAILY [facility] PRN Reason: Protocol Last Admin: 09/30/17 09:50 Dose: 167 mls/hr Methylprednisolone (Solu-Medrol) 40 mg IV Q12 [facility] Last Admin: 09/30/17 09:50 Dose: 40 mg Metoprolol Succinate (Toprol Xl) 25 mg PO BRK [facility] Last Admin: 09/30/17 08:04 Dose: 25 mg Metronidazole (Flagyl) 500 mg PO Q8 [facility] PRN Reason: Protocol Stop: 10/08/17 14:01 Last Admin: 09/30/17 05:22 Dose: 500 mg Ondansetron HCl (Zofran Inj) 4 mg IVP Q6H PRN PRN Reason: Nausea/Vomiting Pantoprazole Sodium (Protonix Ec Tab) 40 mg PO 0630 [facility] Last Admin: 09/30/17 07:30 Dose: 40 mg - Labs Labs: 09/30/17 06:00 09/30/17 06:00 PT 12.7 SECONDS (9.4-12.5) H 09/28/17 08:45 INR 1.15 (0.93-1.08) H 09/28/17 08:45 APTT 29.3 Seconds (25.1-36.5) 09/29/17 05:30 - Constitutional Appears: Well, Non-toxic, No Acute Distress - Head Exam Head Exam: NORMAL INSPECTION - Eye Exam Eye Exam: Normal appearance - ENT Exam ENT Exam: Mucous Membranes Moist - Neck Exam Neck Exam: Full ROM - Respiratory Exam Respiratory Exam: Clear to Ausculation Bilateral, NORMAL BREATHING PATTERN - Cardiovascular Exam Cardiovascular Exam: REGULAR RHYTHM, +S1, +S2 - GI/Abdominal Exam GI & Abdominal Exam: Soft, Normal Bowel Sounds - Extremities Exam Extremities Exam: Normal Inspection - Neurological Exam Neurological Exam: Alert, Awake, Oriented x3 Assessment and Plan - Assessment and Plan (Free Text) Assessment: 67yo female a/w hypercapnic resp failure, COPD exacerbation PNA Hypercapnic Resp failure COPD exacerbation Severe Sepsis/Leukocytosis Abnormal LFTs Dehydration - currently afebrile, HD stable, comfortable off BIPAP, doing well on 2LNC - on exam, lungs CTABL, benign abd exam, AAOx3, NAD - labs with ABG that is markedly improved, chronic compensated resp acidosis, increased LFTs Recommend: - cont with supp o2 as needed, patient tolerating being off BIPAP well - antibiotics as per ID, follow up cultures - BP control - monitor FS - cont with Steroids IV - Duonebs q6hr PRN - obtain RUQ sono - DC Statin, Tylenol (increased LFTs) - IV hydration - check Hep Panel - GI ppx - DVT ppx - Stable
--- NOTE | 2017-09-30 10:34 | CP.PCM.PN ---
Subjective - Date & Time of Evaluation Date of Evaluation: 09/30/17 Time of Evaluation: 10:00 - Subjective Subjective: Comfortable in bed, breathing better, no fevers overnight, no diarrhea, talking in full sentences, no abdominal pain. Objective - Vital Signs/Intake and Output Vital Signs (last 24 hours): Temp Pulse Resp BP Pulse Ox 98.4 F 105 H 28 H 136/81 90 L 09/30/17 04:00 09/30/17 06:00 09/30/17 06:00 09/30/17 06:00 09/30/17 06:00 Intake and Output: 09/29/17 09/30/17 18:59 06:59 Intake Total 1070 500 Output Total 0 0 Balance 1070 500 - Medications Medications: Current Medications Acetaminophen (Tylenol 325mg Tab) 650 mg PO Q6H PRN PRN Reason: Fever >100.4 F Acetylcysteine (Acetylcysteine 20%) 2 ml IH [id number] [facility] Last Admin: 09/29/17 19:50 Dose: 2 ml Albuterol/Ipratropium (Duoneb 3 Mg/0.5 Mg (3 Ml) Ud) 3 ml IH Q2H PRN PRN Reason: Shortness of Breath Albuterol/Ipratropium (Duoneb 3 Mg/0.5 Mg (3 Ml) Ud) 3 ml IH [id number] [facility] Last Admin: 09/30/17 02:30 Dose: 3 ml Aspirin (Aspirin Chewable) 81 mg PO DAILY [facility] Last Admin: 09/29/17 09:48 Dose: 81 mg Atorvastatin Calcium (Lipitor) 20 mg PO DIN [facility] Last Admin: 09/29/17 17:40 Dose: 20 mg Donepezil HCl (Aricept) 10 mg PO HS [facility] Last Admin: 09/29/17 21:50 Dose: 10 mg Haloperidol (Haldol) 2 mg PO TID [facility] PRN Reason: Protocol Last Admin: 09/29/17 17:40 Dose: 2 mg Heparin Sodium (Porcine) (Heparin) 5,000 units SC Q8H [facility] PRN Reason: Protocol Last Admin: 09/30/17 05:22 Dose: 5,000 units Ceftriaxone Sodium (Rocephin 1 Gram Ivpb) 1 gm in 100 mls @ 100 mls/hr IVPB DAILY [facility] PRN Reason: Protocol Last Admin: 09/29/17 10:36 Dose: 100 mls/hr Azithromycin (Zithromax 500mg In Ns) 500 mg in 250 mls @ 167 mls/hr IVPB DAILY [facility] PRN Reason: Protocol Last Admin: 09/29/17 09:47 Dose: 167 mls/hr Methylprednisolone (Solu-Medrol) 40 mg IV Q12 [facility] Last Admin: 09/29/17 21:50 Dose: 40 mg Metoprolol Succinate (Toprol Xl) 25 mg PO BRK [facility] Last Admin: 09/29/17 07:59 Dose: 25 mg Metronidazole (Flagyl) 500 mg PO Q8 [facility] PRN Reason: Protocol Stop: 10/08/17 14:01 Last Admin: 09/30/17 05:22 Dose: 500 mg Ondansetron HCl (Zofran Inj) 4 mg IVP Q6H PRN PRN Reason: Nausea/Vomiting Pantoprazole Sodium (Protonix Ec Tab) 40 mg PO 0630 [facility] Last Admin: 09/29/17 06:08 Dose: 40 mg - Labs Labs: 09/29/17 05:30 09/29/17 05:30 PT 12.7 SECONDS (9.4-12.5) H 09/28/17 08:45 INR 1.15 (0.93-1.08) H 09/28/17 08:45 APTT 29.3 Seconds (25.1-36.5) 09/29/17 05:30 - Constitutional Appears: Non-toxic - Head Exam Head Exam: NORMAL INSPECTION - ENT Exam ENT Exam: Mucous Membranes Moist - Neck Exam Neck Exam: absent: Lymphadenopathy, Meningismus - Respiratory Exam Respiratory Exam: Decreased Breath Sounds. absent: Rales - Cardiovascular Exam Cardiovascular Exam: +S1, +S2 - GI/Abdominal Exam GI & Abdominal Exam: Soft. absent: Tenderness Assessment and Plan - Assessment and Plan (Free Text) Plan: Assessment R/O sepsis due to bilateral community-acquired pneumonia, on top of acute CHF COPD with significant history of smoking depression cataracts dementia HTN history of depression Plan Continue Rocephin, Zithromax and Flagyl day 2 pending sputum cx; blood and urine cx are negative; PCT is elevated at 0.79 follow-up urine Legionella Ag as well follow up ultrasound of the abdomen will monitor clinically
--- NOTE | 2017-09-30 13:23 | US ---
HISTORY: wbc 25k COMPARISON: None. TECHNIQUE: Grayscale imaging was performed. FINDINGS: LIVER: Measures 18.5 cm. Normal echogenicity of the liver parenchyma. No mass. No intrahepatic bile duct dilatation. GALLBLADDER: The gallbladder is well distended and there are multiple gallstones. No wall thickening or pericholecystic fluid. The sonographic Rene's sign is negative. COMMON BILE DUCT: Measures 6.5 mm. No stones. No dilatation. PANCREAS: Normal in size and echotexture. No mass. No ductal dilatation. RIGHT KIDNEY: Measures 13.3cm. Normal echogenicity. No calculus, mass, or hydronephrosis. LEFT KIDNEY: Measures 12.0cm. Normal echogenicity. No calculus, mass, or hydronephrosis. There is a 2.0 x 1.8 x 1.7 cm cyst in the lower pole and 2.2 x 2.3 x 2.2 cm cyst in the lower pole. SPLEEN: Normal in size and contour. No mass. AORTA: No aneurysmal dilatation. IVC: Unremarkable. OTHER FINDINGS: There is a small right pleural effusion. IMPRESSION: 1. Cholelithiasis. 2. Small right pleural effusion.
--- NOTE | 2017-09-30 16:03 | CARD ---
APPROVED REPORT EXAM: Two-dimensional and M-mode echocardiogram with Doppler and color Doppler. INDICATION Congestive Heart Failure 2D DIMENSIONS Left Atrium (2D)3.9 (1.6-4.0cm)IVSd0.9 (0.7-1.1cm) LVDd3.6 (3.9-5.9cm)PWd1.1 (0.7-1.1cm) LVDs2.3 (2.5-4.0cm)FS (%) 36.4 % LVEF (%)67.1 (>50%) M-Mode DIMENSIONS Aortic Root3.20 (2.2-3.7cm)Aortic Cusp Exc.1.70 (1.5-2.0cm) Aortic Valve AoV Peak Nivnxzux241.0cm/Elliott Peak GR.19mmHgLVOT Peak Eyipmlwv727.0cm/s LVOT VTI28.30cm Mitral Valve MV E Sbivwmsd45.9cm/sMV A Dlntvhaw811.0cm/sE/A ratio0.7 TDI Lateral E' Peak V9.36cm/sMedial E' Peak V11.00cm/sE/Lateral E'8.6 E/Medial E'7.4 Pulmonary Valve PV Peak Bdstrznf77.9cm/sPV Peak Grad.3mmHg Tricuspid Valve TR Peak Homlykel342in/sRAP RUEWUQUY52foTwRN Peak Gr.60mmHg [id number] LEFT VENTRICLE The left ventricle is normal size. There is normal left ventricular wall thickness. The left ventricular function is normal. The left ventricular ejection fraction is within the normal range. There is normal LV segmental wall motion. Transmitral Doppler flow pattern is Grade I-abnormal relaxation pattern. RIGHT VENTRICLE The right ventricle is mildly dilated. The right ventricular Systolic function is mildly reduced. ATRIA The left atrium size is normal. The right atrium is moderately dilated. AORTIC VALVE The aortic valve is not well visualized. There is trace aortic regurgitation. There is trace valvular aortic stenosis. MITRAL VALVE The mitral valve is mildly thickened. There is no mitral valve regurgitation noted. TRICUSPID VALVE There is mild to moderate tricuspid regurgitation. There is moderate to severe pulmonary hypertension. GREAT VESSELS The aortic root is normal in size. The IVC collapses <50% with inspiration. <Conclusion> The left ventricle is normal size. There is normal left ventricular wall thickness. The left ventricular function is normal. The left ventricular ejection fraction is within the normal range. There is normal LV segmental wall motion. Transmitral Doppler flow pattern is Grade I-abnormal relaxation pattern. The right ventricle is mildly dilated. The right ventricular Systolic function is mildly reduced. There is moderate to severe pulmonary hypertension.
--- NOTE | 2017-09-30 16:05 | PN ---
DATE: 09/30/2017 REASON FOR CONSULTATION AND FOLLOWUP: Positive troponin admitted with pneumonia and shingles. SUBJECTIVE: The patient denies any chest pain. Denies any shortness of breath. Denies any palpitation. He is in isolation. PHYSICAL EXAMINATION: GENERAL: The patient is an isolation. VITAL SIGNS: As follows, temperature afebrile, heart rate 85, and blood pressure 129/85. HEENT: PERRLA. Extraocular muscles intact. NECK: Supple. No carotid bruit or thyromegaly. CHEST: Clear to auscultation. HEART: S1 and S2 regular. ABDOMEN: Soft. EXTREMITIES: Clubbing and cyanosis negative. LABORATORY DATA: Blood workup as follows, WBC 18.2, hemoglobin 10.4, hematocrit 33.9, and platelet count 356. Chemistry shows sodium 137, potassium 4.7, chloride 96, carbon dioxide 24, anion gap of 8, BUN 18, and creatinine 0.5. IMPRESSION: Sepsis, pneumonia, shingles, positive troponin, may be secondary to hemodynamic instability, tachycardia, fever, admitted white blood count Elevated versus cannot rule out non-ST segment myocardial infarction, history of fall, uncontrolled diabetes and chronic obstructive pulmonary disease. No complaint of chest pain. EKG is benign. RECOMMENDATIONS: Continue broad-spectrum antibiotic. Once the patient is stable in isolation, consider stress test just to rule out any underlying coronary artery disease before the patient goes on for risk stratification. For now, continue broad-spectrum antibiotic as mentioned. Continue DuoNeb nebulizer. Continue baby aspirin. Continue beta-jovani. We will increase metoprolol 50 b.i.d from metoprolol succinate to metoprolol tartrate to control for better blood pressure as well as tachycardia. Continue DVT prophylaxis. Jamil Gutierrez MD MTDD
--- NOTE | 2017-09-30 21:42 | PN ---
DATE: SUBJECTIVE: The patient is a 67-year-old, seen and examined. She is off of BiPAP mask. She is saturating well with nasal cannula. No nausea, vomiting or diarrhea. Mild shortness of breath. PHYSICAL EXAMINATION VITAL SIGNS: She is afebrile, pulse 111, respirations 35, blood pressure 116/57. LUNGS: Bilateral diffusely increased breath sound. HEART: S1 and S2 audible. No murmur. ABDOMEN: Soft, nontender. No rebound. No guarding. NEUROLOGIC: She is awake, alert, oriented, communicative. LABORATORY DATA: WBC 18.8, hemoglobin 10.4, hematocrit 33.9, platelets 356. Chemistry: Sodium 135, potassium 4.7, chloride 93, CO2 38, BUN 18, creatinine 0.5, blood sugar of 140. AST 178, ALT 171, alkaline phosphatase 147. Blood culture and urine cultures are negative. ASSESSMENT AND PLAN: She has echocardiogram done that shows right ventricle mildly dilated and right ventricle systolic function is mildly reduced. Moderate to severe pulmonary hypertension. Abdominal sonogram shows cholelithiasis and right pleural effusion. PLAN: We will continue the patient on aspirin. She is on nebulizer treatment. She is getting metronidazole. She is on Haldol. She is on DVT prophylaxis. She is on prednisone 40 q. 12 and Zithromax. We will follow up the patient in a.m. Santosh Cabrera MD
[2017-10-01] MEDS: Albuterol-Ipratrop 3 mg / 0.5 (3 ml) UD IH SCH ×4 (01:20→19:31)
[2017-10-01] MEDS: Pantoprazole 40 mg EC Tab PO SCH (05:39)
[2017-10-01] MEDS: Acetylcysteine 20% Inhal Soln (4ml) IH SCH (07:47)
[2017-10-01] MEDS: cefTRIAXone 1 gm 1 GM/100 ML BAG IVPB SCH (09:32)
[2017-10-01] MEDS: Azithromycin 500MG/NS 250ml 500 MG/250 ML BAG IVPB SCH (09:32)
--- NOTE | 2017-10-01 09:33 | CP.PCM.PN ---
Subjective - Date & Time of Evaluation Date of Evaluation: 10/01/17 Time of Evaluation: 09:10 - Subjective Subjective: Ate her breakfast well, no fevers overnight, no diarrhea, no abdominal pain, no vomiting, no headache, no SOB at rest, still with some cough but it is dry. Objective - Vital Signs/Intake and Output Vital Signs (last 24 hours): Temp Pulse Resp BP Pulse Ox 98.4 F 83 31 H 130/71 88 L 10/01/17 03:59 10/01/17 03:59 10/01/17 03:59 10/01/17 04:00 10/01/17 03:30 - Medications Medications: Current Medications Acetylcysteine (Acetylcysteine 20%) 2 ml IH [id number] [facility] Last Admin: 09/30/17 20:20 Dose: 2 ml Albuterol/Ipratropium (Duoneb 3 Mg/0.5 Mg (3 Ml) Ud) 3 ml IH Q2H PRN PRN Reason: Shortness of Breath Albuterol/Ipratropium (Duoneb 3 Mg/0.5 Mg (3 Ml) Ud) 3 ml IH [id number] [facility] Last Admin: 10/01/17 01:20 Dose: 3 ml Aspirin (Aspirin Chewable) 81 mg PO DAILY [facility] Last Admin: 09/30/17 09:49 Dose: 81 mg Atorvastatin Calcium (Lipitor) 20 mg PO DIN [facility] Last Admin: 09/29/17 17:40 Dose: 20 mg Donepezil HCl (Aricept) 10 mg PO HS [facility] Last Admin: 09/30/17 21:43 Dose: 10 mg Haloperidol (Haldol) 2 mg PO TID [facility] PRN Reason: Protocol Last Admin: 09/30/17 17:40 Dose: 2 mg Heparin Sodium (Porcine) (Heparin) 5,000 units SC Q8H [facility] PRN Reason: Protocol Last Admin: 10/01/17 04:26 Dose: 5,000 units Azithromycin (Zithromax 500mg In Ns) 500 mg in 250 mls @ 167 mls/hr IVPB DAILY [facility] PRN Reason: Protocol Last Admin: 09/30/17 09:50 Dose: 167 mls/hr Ceftriaxone Sodium (Rocephin 1 Gram Ivpb (D5w)) 1 gm in 100 mls @ 100 mls/hr IVPB DAILY [facility] PRN Reason: Protocol Methylprednisolone (Solu-Medrol) 40 mg IV Q12 [facility] Last Admin: 09/30/17 21:42 Dose: 40 mg Metoprolol Tartrate (Lopressor) 50 mg PO BID [facility] Last Admin: 09/30/17 17:43 Dose: 50 mg Metronidazole (Flagyl) 500 mg PO Q8 [facility] PRN Reason: Protocol Stop: 10/08/17 14:01 Last Admin: 10/01/17 05:39 Dose: 500 mg Ondansetron HCl (Zofran Inj) 4 mg IVP Q6H PRN PRN Reason: Nausea/Vomiting Pantoprazole Sodium (Protonix Ec Tab) 40 mg PO 0630 [facility] Last Admin: 10/01/17 05:39 Dose: 40 mg - Labs Labs: 09/30/17 06:00 09/30/17 06:00 PT 12.7 SECONDS (9.4-12.5) H 09/28/17 08:45 INR 1.15 (0.93-1.08) H 09/28/17 08:45 APTT 29.3 Seconds (25.1-36.5) 09/29/17 05:30 - Constitutional Appears: Non-toxic - Head Exam Head Exam: NORMAL INSPECTION - ENT Exam ENT Exam: Mucous Membranes Moist - Neck Exam Neck Exam: absent: Lymphadenopathy, Meningismus - Respiratory Exam Respiratory Exam: Decreased Breath Sounds - Cardiovascular Exam Cardiovascular Exam: +S1, +S2 - GI/Abdominal Exam GI & Abdominal Exam: Soft. absent: Tenderness Assessment and Plan - Assessment and Plan (Free Text) Plan: Assessment R/O sepsis due to bilateral community-acquired pneumonia, on top of acute CHF COPD with significant history of smoking depression cataracts dementia HTN history of depression Plan Continue Rocephin, Zithromax and will d/c Flagyl day 3 pending sputum cx; blood and urine cx are negative; PCT is elevated at 0.79 follow-up urine Legionella Ag as well ultrasound of the abdomen shows cholelithiasis but no evidence of cholecystitis will continue to monitor clinically
[2017-10-01] MEDS: MethylPREDNISolone 40 mg Vial IV SCH ×2 (09:36→21:40)
[2017-10-01 11:19] LABS: TROPONIN I < 0.01 ng/mL
--- NOTE | 2017-10-01 13:38 | PN ---
DATE: 10/01/2017 REASON FOR CONSULTATION AND FOLLOWUP: Positive troponin admitted with pneumonia and shingles, and extensive history of smoking. SUBJECTIVE: The patient denies any chest pain, denies shortness of breath, and denies any palpitations. She is in isolation because of shingles. OBJECTIVE/PHYSICAL EXAMINATION: As follows: GENERAL: Not in apparent distress, sitting in the room in the ICU. VITAL SIGNS: Temperature is afebrile, heart rate is 113, and blood pressure is 131/87. HEENT: PERRLA intact. NECK: Supple. No carotid bruits or thyromegaly. CHEST: Clear to auscultation. HEART: S1 and S2 regular. ABDOMEN: Soft. EXTREMITIES: Clubbing or cyanosis negative. LABORATORY DATA: WBC of 18.8, hemoglobin of 10.4, hematocrit of 33.9, and platelet count of 356. Chemistry shows sodium of 135, potassium of 4.7, chloride of 90, carbon dioxide of 38, anion gap of 8, BUN of 18, and creatinine of 0.5. AST of 178, ALT of 171, and alkaline phosphatase of 148. Troponin is 0.013 and 0.09. DIAGNOSTIC DATA: The patient had echocardiography done yesterday that revealed normal LV wall thickness, normal LV function, and ejection fraction is within normal limit. Normal segmental wall motion right ventricular is dilated. Systolic function of RV mildly reduced, moderate to severe pulmonary hypertension, and RV systolic pressure of 70. Ejection fraction reported 67%. No mitral regurgitation noted. Mild to moderate tricuspid regurgitation reported. IMPRESSION: Bilateral community-acquired pneumonia, sepsis, [place] [id number], shingles, positive troponin is most likely secondary to hemodynamic instability, I doubt it is myocardial infarction, pulmonary hypertension, extensive history of smoker with right ventricular systolic pressure 70, tachycardiac, abnormal liver function test and it is elevated, but given the multiple disorder, suggest to rule out underlying coronary artery disease. History of chronic obstructive pulmonary disease and history of uncontrolled diabetes. The patient denies any chest pain or shortness of breath. Electrocardiogram is reportedly benign. RECOMMENDATIONS: Continue broad spectrum antibiotic. When the patient is stable and out of isolation, we will consider stress test before she goes somewhat as an outpatient for risk stratification. Continue baby aspirin, continue beta-jovani, increased to 50 mg twice a day to better control of blood pressure as well as tachycardia from metoprolol succinate to once a day to metoprolol tartrate twice a day. Current treatment of COPD, we will follow with you. No complaint of chest pain. We will add troponin in today's blood drawn. Repeat EKG on 09/29/2017, normal sinus tachycardia otherwise normal. We will repeat EKG tomorrow. Jamil Gutierrez MD
--- NOTE | 2017-10-01 23:11 | PN ---
DATE: SUBJECTIVE: The patient is 67-year-old, seen and examined, lying in bed, seems to be comfortable. She is saturating 92% on 2 L nasal cannula. PHYSICAL EXAMINATION: VITAL SIGNS: She is afebrile, pulse 91, respirations 20, and blood pressure 150/57. LUNGS: Bilateral diffusely decreased breath sound. HEART: S1 and S2 audible. ABDOMEN: Soft, nontender. No rebound. No guarding. NEUROLOGIC: She is awake, alert, oriented, communicative. Moves all extremities. LABORATORY DATA: WBC is 18.8, hemoglobin 10.4, hematocrit 33.9, platelet of 356. Chemistries; sodium 135, potassium 4.7, chloride 93, CO2 of 38, BUN 18, creatinine 0.5, blood sugar of 140. AST 178, ALT 171, alkaline phosphatase is 148. Her blood culture and urine cultures are negative. She had an echocardiogram done that shows mildly dilated right ventricular systolic function is reduced, [id number] pulmonary hypertension. She had abdominal sonogram done that shows cholelithiasis and small right pleural effusion. ASSESSMENT: 1. Status post chronic obstructive pulmonary disease exacerbation. 2. Pulmonary hypertension. 3. Chronic obstructive pulmonary disease. 4. Abnormal liver function test, probably passive congestion. 5. Deconditioning. PLAN: Continue nebulizer treatment. Continue on IV steroids and antibiotics. We will follow the patient in a.m. Santosh Cabrera MD
[2017-10-02] MEDS: Albuterol-Ipratrop 3 mg / 0.5 (3 ml) UD IH SCH ×4 (01:05→20:52)
[2017-10-02 07:26] LABS: TROPONIN I < 0.01 ng/mL
[2017-10-02] MEDS: Pantoprazole 40 mg EC Tab PO SCH (08:00)
[2017-10-02] MEDS: cefTRIAXone 1 gm 1 GM/100 ML BAG IVPB SCH (09:16)
[2017-10-02] MEDS: MethylPREDNISolone 40 mg Vial IV SCH ×2 (09:16→22:01)
[2017-10-02] MEDS: Azithromycin 500MG/NS 250ml 500 MG/250 ML BAG IVPB SCH (09:17)
--- NOTE | 2017-10-02 09:55 | CP.PCM.PN ---
Subjective - Date & Time of Evaluation Date of Evaluation: 10/02/17 Time of Evaluation: 09:30 - Subjective Subjective: Comfortable, no fevers, no pain in the back, ate her breakfast well, no diarrhea , no vomiting. Objective - Vital Signs/Intake and Output Vital Signs (last 24 hours): Temp Pulse Resp BP Pulse Ox 98 F 90 45 H 150/77 89 L 10/02/17 00:00 10/02/17 03:30 10/02/17 03:30 10/02/17 01:00 10/01/17 22:01 Intake and Output: 10/01/17 10/02/17 18:59 06:59 Intake Total 1484 Output Total 450 Balance 1034 - Medications Medications: Current Medications Albuterol/Ipratropium (Duoneb 3 Mg/0.5 Mg (3 Ml) Ud) 3 ml IH Q2H PRN PRN Reason: Shortness of Breath Albuterol/Ipratropium (Duoneb 3 Mg/0.5 Mg (3 Ml) Ud) 3 ml IH [id number] [facility] Last Admin: 10/02/17 01:05 Dose: 3 ml Aspirin (Aspirin Chewable) 81 mg PO DAILY [facility] Last Admin: 10/01/17 09:36 Dose: 81 mg Atorvastatin Calcium (Lipitor) 20 mg PO DIN [facility] Last Admin: 09/29/17 17:40 Dose: 20 mg Donepezil HCl (Aricept) 10 mg PO HS [facility] Last Admin: 10/01/17 21:41 Dose: 10 mg Haloperidol (Haldol) 2 mg PO TID [facility] PRN Reason: Protocol Last Admin: 10/01/17 17:45 Dose: 2 mg Heparin Sodium (Porcine) (Heparin) 5,000 units SC Q8H [facility] PRN Reason: Protocol Last Admin: 10/02/17 05:54 Dose: 5,000 units Azithromycin (Zithromax 500mg In Ns) 500 mg in 250 mls @ 167 mls/hr IVPB DAILY [facility] PRN Reason: Protocol Last Admin: 10/01/17 09:32 Dose: 167 mls/hr Ceftriaxone Sodium (Rocephin 1 Gram Ivpb (D5w)) 1 gm in 100 mls @ 100 mls/hr IVPB DAILY [facility] PRN Reason: Protocol Last Admin: 10/01/17 09:32 Dose: 100 mls/hr Methylprednisolone (Solu-Medrol) 40 mg IV Q12 [facility] Last Admin: 10/01/17 21:40 Dose: 40 mg Metoprolol Tartrate (Lopressor) 50 mg PO BID [facility] Last Admin: 10/01/17 17:45 Dose: 50 mg Ondansetron HCl (Zofran Inj) 4 mg IVP Q6H PRN PRN Reason: Nausea/Vomiting Pantoprazole Sodium (Protonix Ec Tab) 40 mg PO 0630 [facility] Last Admin: 10/01/17 05:39 Dose: 40 mg - Labs Labs: 09/30/17 06:00 09/30/17 06:00 PT 12.7 SECONDS (9.4-12.5) H 09/28/17 08:45 INR 1.15 (0.93-1.08) H 09/28/17 08:45 APTT 29.3 Seconds (25.1-36.5) 09/29/17 05:30 - Constitutional Appears: Non-toxic, Chronically Ill - Head Exam Head Exam: NORMAL INSPECTION - ENT Exam ENT Exam: Mucous Membranes Moist - Neck Exam Neck Exam: absent: Lymphadenopathy, Meningismus - Respiratory Exam Respiratory Exam: Decreased Breath Sounds - Cardiovascular Exam Cardiovascular Exam: +S1, +S2 - GI/Abdominal Exam GI & Abdominal Exam: Soft. absent: Tenderness - Skin Additional comments: few blisters noted on the lumbar area, scattered over several dermatomes, no crusting noted on those that have burst, does not fit dermatomal pattern and even crosses the midline Assessment and Plan - Assessment and Plan (Free Text) Plan: Assessment R/O sepsis due to bilateral community-acquired pneumonia, on top of acute CHF blisters, undetermined etiology, less likely herpes zoster COPD with significant history of smoking depression cataracts dementia HTN history of depression Plan Continue Rocephin, Zithromax day 4 pending sputum cx; blood and urine cx are negative; PCT is elevated at 0.79 follow-up urine Legionella Ag as well ultrasound of the abdomen shows cholelithiasis but no evidence of cholecystitis blisters are less likely Herpes zoster - no need for airborne isolation will continue to monitor clinically
--- NOTE | 2017-10-02 14:55 | PN ---
DATE: REASON FOR CONSULTATION AND FOLLOWUP: Positive troponin, admitted with pneumonia, shingles, history of smoking, and COPD. SUBJECTIVE: The patient denies any chest pain, shortness of breath, or any palpitation. On isolation for shingles. OBJECTIVE: GENERAL: Not in apparent distress, mild short of breath. VITAL SIGNS: As follows: Temperature afebrile, heart rate 92, and blood pressure 154/88. HEENT: PERRLA. Extraocular muscles intact. NECK: Supple. No carotid bruits or thyromegaly. CHEST: Clear to auscultation. HEART: S1 and S2. Regular. ABDOMEN: Soft. EXTREMITIES: Clubbing and cyanosis negative. LABORATORY DATA: Blood workup as follows: WBC is 10.8, hemoglobin 10.4, hematocrit 33.9, and platelet of 356. Chemistry shows sodium 135, potassium 4.7, chloride 93, CO2 of 38, anion gap of 8, BUN 18, and creatinine 0.5. Troponin 0.01, negative. IMPRESSION: Bilateral community-acquired pneumonia admitted with elevated , shingles, positive troponins, most likely secondary to hemodynamic instability, I doubt it is myocardial infarction, now the troponin is trending back to normal, extensive history of smoker, active tobacco abuse, was smoking before admitted here, right ventricular systolic pressure elevated consistent with pulmonary hypertension. The patient had an echocardiography done yesterday that shows normal left ventricular function, right ventricular mildly reduced, [id number] pulmonary hypertension, right ventricular systolic pressure of 70, ejection fraction of 67%, no mitral regurgitation, moderate tricuspid regurgitation. RECOMMENDATIONS: Continue aggressive treatment for COPD. Continue beta-jovani 50 mg twice a day. Continue broad-spectrum antibiotic. Once the patient is off isolation and able to lay down, we will consider before the patient goes home when the symptoms of acute exacerbation of COPD resolve. In the interim, continue baby aspirin 81 mg daily. Continue DVT prophylaxis. Continue atorvastatin. Repeat EKG done today shows normal sinus. No acute ST-T changes. Normal EKG. We will follow with you. Thank you Dr. Cabrera for providing opportunity in taking care of your patient, Whitley Hendrix. Jamil Gutierrez MD
--- NOTE | 2017-10-02 19:38 | PN ---
DATE: SUBJECTIVE: The patient is a 67-year-old seen and examined, doing well. No nausea or vomiting. No diarrhea. No fever. No chills. No hemoptysis. No hematemesis. Eating and tolerating. PHYSICAL EXAMINATION: VITAL SIGNS: She is afebrile, pulse 81, respirations 20, and blood pressure 160/94. LUNGS: Bilateral diffusely decreased breath sounds. HEART: S1 and S2 audible. ABDOMEN: Soft, obese and nontender. No rebound. No guarding. NEUROLOGIC: She is awake, alert, oriented, communicative. Moves all extremities. LABORATORY EXAMINATION: WBC is 18.8, hemoglobin 10.4, hematocrit 33.9 and platelet of 356. Chemistry: Sodium 135, potassium 4.7, chloride 93, CO2 of 38, BUN 18, creatinine 0.5, and blood sugar of 140. Cardiac enzymes are negative. ASSESSMENT: 1. Chronic obstructive pulmonary disease exacerbation. 2. History of hypertension. 3. Bipolar disorder. 4. Pulmonary hypertension. 5. Mild dilatation of right ventricle. PLAN: The patient is currently on aspirin. She is getting nebulizer treatment. She is on her usual medication of Haldol 2 mg t.i.d. She is on DVT prophylaxis. Continue her on Lasix and IV steroids. Continue her on Zithromax. Santosh Cabrera MD
--- NOTE | 2017-10-02 22:24 | CP.PCM.PN ---
Subjective - Date & Time of Evaluation Date of Evaluation: 10/02/17 Time of Evaluation: 22:24 - Subjective Subjective: Patient was seen because wrist restrain order was requested as patient is agitated. It was done . When I went to see patient , I found her to be resting. Medical record was reviewed. This 67 year old woman was admitted with increasing sob, cough , congestion, bilateral pneumonia. Has PMH of COPD,bioplar disorder, tobacco dependence. Objective - Vital Signs/Intake and Output Vital Signs (last 24 hours): Temp Pulse Resp BP Pulse Ox 98.3 F 103 H 62 H 127/91 H 92 L 10/02/17 16:00 10/02/17 18:09 10/02/17 17:30 10/02/17 18:09 10/02/17 13:01 Intake and Output: 10/02/17 10/03/17 18:59 06:59 Intake Total 1663 Balance 1663 - Medications Medications: Current Medications Albuterol/Ipratropium (Duoneb 3 Mg/0.5 Mg (3 Ml) Ud) 3 ml IH Q2H PRN PRN Reason: Shortness of Breath Albuterol/Ipratropium (Duoneb 3 Mg/0.5 Mg (3 Ml) Ud) 3 ml IH [id number] [facility] Last Admin: 10/02/17 20:52 Dose: 3 ml Aspirin (Aspirin Chewable) 81 mg PO DAILY [facility] Last Admin: 10/02/17 09:15 Dose: 81 mg Atorvastatin Calcium (Lipitor) 20 mg PO DIN [facility] Last Admin: 09/29/17 17:40 Dose: 20 mg Donepezil HCl (Aricept) 10 mg PO HS [facility] Last Admin: 10/02/17 22:01 Dose: 10 mg Haloperidol (Haldol) 2 mg PO TID [facility] PRN Reason: Protocol Last Admin: 10/02/17 18:08 Dose: 2 mg Heparin Sodium (Porcine) (Heparin) 5,000 units SC Q8H [facility] PRN Reason: Protocol Last Admin: 10/02/17 20:35 Dose: Not Given Azithromycin (Zithromax 500mg In Ns) 500 mg in 250 mls @ 167 mls/hr IVPB DAILY [facility] PRN Reason: Protocol Last Admin: 10/02/17 09:17 Dose: 167 mls/hr Ceftriaxone Sodium (Rocephin 1 Gram Ivpb (D5w)) 1 gm in 100 mls @ 100 mls/hr IVPB DAILY [facility] PRN Reason: Protocol Last Admin: 10/02/17 09:16 Dose: 100 mls/hr Methylprednisolone (Solu-Medrol) 40 mg IV Q12 [facility] Last Admin: 10/02/17 22:01 Dose: 40 mg Metoprolol Tartrate (Lopressor) 50 mg PO BID [facility] Last Admin: 10/02/17 18:09 Dose: 50 mg Ondansetron HCl (Zofran Inj) 4 mg IVP Q6H PRN PRN Reason: Nausea/Vomiting Pantoprazole Sodium (Protonix Ec Tab) 40 mg PO 0630 [facility] Last Admin: 10/02/17 08:00 Dose: 40 mg Valacyclovir HCl (Valtrex) 500 mg PO BID [facility] PRN Reason: Protocol Last Admin: 10/02/17 18:08 Dose: 500 mg - Labs Labs: 09/30/17 06:00 09/30/17 06:00 PT 12.7 SECONDS (9.4-12.5) H 09/28/17 08:45 INR 1.15 (0.93-1.08) H 09/28/17 08:45 APTT 29.3 Seconds (25.1-36.5) 09/29/17 05:30 - Constitutional Appears: Well, No Acute Distress - Head Exam Head Exam: ATRAUMATIC, NORMAL INSPECTION, NORMOCEPHALIC - Eye Exam Eye Exam: Normal appearance - ENT Exam ENT Exam: Normal External Ear Exam - Neck Exam Neck Exam: Normal Inspection - Respiratory Exam Respiratory Exam: NORMAL BREATHING PATTERN - Cardiovascular Exam Cardiovascular Exam: absent: JVD - GI/Abdominal Exam GI & Abdominal Exam: absent: Distended - Rectal Exam Rectal Exam: Deferred - Exam Additional comments: Deferred. - Extremities Exam Extremities Exam: Normal Inspection - Back Exam Back Exam: NORMAL INSPECTION - Neurological Exam Additional comments: Asleep. - Psychiatric Exam Additional comments: Asleep. - Skin Skin Exam: Normal Color Assessment and Plan - Assessment and Plan (Free Text) Assessment: Agitation. Bilateral PNA. COPD. Bipolar disorder. Plan: Bilateral wrist restraints. Continue present management.
--- NOTE | 2017-10-02 23:43 | CARD ---
APPROVED REPORT EKG Measurement Heart [id number] <Conclusion> Normal sinus rhythm Normal ECG
[2017-10-03] MEDS: Pantoprazole 40 mg EC Tab PO SCH (06:09)
[2017-10-03 07:37] LABS: TROPONIN I < 0.01 ng/mL
[2017-10-03] MEDS: Albuterol-Ipratrop 3 mg / 0.5 (3 ml) UD IH SCH ×3 (08:50→19:47)
[2017-10-03] MEDS: cefTRIAXone 1 gm 1 GM/100 ML BAG IVPB SCH (09:55)
[2017-10-03] MEDS: MethylPREDNISolone 40 mg Vial IV SCH ×2 (09:55→21:46)
[2017-10-03] MEDS: Azithromycin 500MG/NS 250ml 500 MG/250 ML BAG IVPB SCH (09:56)
--- NOTE | 2017-10-03 10:18 | CP.PCM.PN ---
Subjective - Date & Time of Evaluation Date of Evaluation: 10/03/17 Time of Evaluation: 09:30 - Subjective Subjective: Comfortable in bed, not in distress, no fevers, no abdominal pain, no diarrhea, eating well. Noted events overnight where she had an episode of agitation but this morning she is not agitated or anxious. Objective - Vital Signs/Intake and Output Vital Signs (last 24 hours): Temp Pulse Resp BP Pulse Ox 97.6 F 83 62 H 127/91 H 92 L 10/03/17 00:00 10/02/17 22:00 10/02/17 17:30 10/02/17 18:09 10/02/17 13:01 - Medications Medications: Current Medications Albuterol/Ipratropium (Duoneb 3 Mg/0.5 Mg (3 Ml) Ud) 3 ml IH Q2H PRN PRN Reason: Shortness of Breath Albuterol/Ipratropium (Duoneb 3 Mg/0.5 Mg (3 Ml) Ud) 3 ml IH [id number] [facility] Last Admin: 10/03/17 08:50 Dose: 3 ml Aspirin (Aspirin Chewable) 81 mg PO DAILY [facility] Last Admin: 10/02/17 09:15 Dose: 81 mg Atorvastatin Calcium (Lipitor) 20 mg PO DIN [facility] Last Admin: 09/29/17 17:40 Dose: 20 mg Donepezil HCl (Aricept) 10 mg PO HS [facility] Last Admin: 10/02/17 22:01 Dose: 10 mg Haloperidol (Haldol) 2 mg PO TID [facility] PRN Reason: Protocol Last Admin: 10/02/17 18:08 Dose: 2 mg Heparin Sodium (Porcine) (Heparin) 5,000 units SC Q8H [facility] PRN Reason: Protocol Last Admin: 10/03/17 04:45 Dose: Not Given Azithromycin (Zithromax 500mg In Ns) 500 mg in 250 mls @ 167 mls/hr IVPB DAILY [facility] PRN Reason: Protocol Last Admin: 10/02/17 09:17 Dose: 167 mls/hr Ceftriaxone Sodium (Rocephin 1 Gram Ivpb (D5w)) 1 gm in 100 mls @ 100 mls/hr IVPB DAILY [facility] PRN Reason: Protocol Last Admin: 10/02/17 09:16 Dose: 100 mls/hr Methylprednisolone (Solu-Medrol) 40 mg IV Q12 [facility] Last Admin: 10/02/17 22:01 Dose: 40 mg Metoprolol Tartrate (Lopressor) 50 mg PO BID [facility] Last Admin: 10/02/17 18:09 Dose: 50 mg Ondansetron HCl (Zofran Inj) 4 mg IVP Q6H PRN PRN Reason: Nausea/Vomiting Pantoprazole Sodium (Protonix Ec Tab) 40 mg PO 0630 [facility] Last Admin: 10/03/17 06:09 Dose: 40 mg Valacyclovir HCl (Valtrex) 500 mg PO BID [facility] PRN Reason: Protocol Last Admin: 10/02/17 18:08 Dose: 500 mg - Labs Labs: 09/30/17 06:00 09/30/17 06:00 PT 12.7 SECONDS (9.4-12.5) H 09/28/17 08:45 INR 1.15 (0.93-1.08) H 09/28/17 08:45 APTT 29.3 Seconds (25.1-36.5) 09/29/17 05:30 - Constitutional Appears: Non-toxic, No Acute Distress - Head Exam Head Exam: NORMAL INSPECTION - ENT Exam ENT Exam: Mucous Membranes Moist - Neck Exam Neck Exam: absent: Meningismus - Respiratory Exam Respiratory Exam: Decreased Breath Sounds. absent: Rales - Cardiovascular Exam Cardiovascular Exam: +S1, +S2 - GI/Abdominal Exam GI & Abdominal Exam: Soft. absent: Tenderness Assessment and Plan - Assessment and Plan (Free Text) Plan: Assessment R/O sepsis due to bilateral community-acquired pneumonia, on top of acute CHF blisters on lumbar/sacral area, undetermined etiology, less likely herpes zoster COPD with significant history of smoking depression cataracts dementia HTN history of depression Plan Continue Rocephin, Zithromax day 5; blood and urine cx are negative, sputum cx only showing normal oral lennox; PCT is elevated at 0.79 - complete 7 days of therapy urine Legionella Ag is negative ultrasound of the abdomen shows cholelithiasis but no evidence of cholecystitis blisters are less likely Herpes zoster - no need for airborne isolation will continue to monitor clinically
--- NOTE | 2017-10-03 14:37 | PN ---
DATE: 10/03/2017 REASON FOR CONSULTATION AND FOLLOWUP: Positive troponin, admitted with pneumonia, shingles, history of smoking, and COPD. SUBJECTIVE: The patient denies any chest pain, shortness of breath or any palpitation. On isolation for shingles. OBJECTIVE: GENERAL: Not in apparent distress. Lying on 30-degree head up. VITAL SIGNS: As follows; temperature afebrile, heart rate 83, and blood pressure 138/90. HEENT: PERRLA. Extraocular muscles intact. NECK: Supple. No carotid bruits or thyromegaly. CHEST: Clear to auscultation. HEART: S1 and S2. Regular. ABDOMEN: Soft. EXTREMITIES: Clubbing and cyanosis negative. LABORATORY DATA: Blood workup as follows: WBC 18.8, hemoglobin 10.4, hematocrit 33.8, and platelet count 358. Chemistry shows sodium 135, potassium 4.7, chloride 98, carbon dioxide of 38, anion gap of 8, BUN 18, and creatinine 0.5. Troponin 0.00 negative. IMPRESSION: This is a 67-year-old female, active tobacco abuse, history of hypertension, admitted with bilateral community-acquired pneumonia and shingles, positive troponin, most likely secondary to hemodynamic instability, doubt is myocardial infraction. Now the troponin is negative. Active tobacco abuse. Right ventricular systolic pressure elevated consistent with pulmonary hypertension. Echo shows normal LV function, right ventricular function is mildly reduced, [id number] pulmonary hypertension, RV systolic pressure is 70, ejection fraction of 67%, no significant mitral regurgitation and moderate tricuspid regurgitation. RECOMMENDATIONS: Continue broad-spectrum antibiotic. The patient is on beta-jovani for tachycardia. Continue aggressive treatment for COPD. Once the patient is stable, out of the unit, consider stress test for risk of stratification. Continue DVT prophylaxis. Repeat EKG done yesterday shows normal sinus, no acute ST-T changes noted, essentially normal EKG. Continue DVT prophylaxis. Continue metoprolol 50. Continue aspirin. Continue atorvastatin. Suggest as mentioned stress test before the patient goes home. Jamil Gutierrez MD
--- NOTE | 2017-10-03 18:35 | PN ---
DATE: SUBJECTIVE: The patient is 67-year-old, seen and examined, sitting in chair, eating her lunch, doing well. No chest pain. No shortness of breath. PHYSICAL EXAMINATION: VITAL SIGNS: She is afebrile, pulse 95, respirations 18, and blood pressure 126/71. LUNGS: Bilateral good airflow. No rhonchi or crackles. She has diffused decreased breath sound. HEART: S1 and S2 audible. ABDOMEN: Soft and nontender. No rebound. No guarding. NEUROLOGIC: She is awake, alert, oriented, communicative. LABORATORY DATA: LDH is 545. CPK is 36. Troponin is negative. ASSESSMENT AND PLAN: 1. Chronic obstructive pulmonary disease exacerbation. 2. History of bipolar disorder. 3. Mild dementia. 4. Hyperlipidemia. 5. Abnormal liver function test. PLAN: The patient is clinically stable. Can be transferred out of ICU. We will request for TCU evaluation; if accepted, will be transferred to TCU. Santosh Cabrera MD
[2017-10-04] MEDS: Albuterol-Ipratrop 3 mg / 0.5 (3 ml) UD IH SCH ×4 (01:13→20:11)
[2017-10-04] MEDS: Pantoprazole 40 mg EC Tab PO SCH (05:34)
[2017-10-04] MEDS: cefTRIAXone 1 gm 1 GM/100 ML BAG IVPB SCH ×2 (10:42→11:25)
[2017-10-04 11:26] LABS: BASO # 0.01 K/mm3 (0.0-2.0); BASO % 0.1 % (0.0-3.0); EOS % 0.1 % (1.5-5.0); GRAN # 12.8 (1.4-6.5); GRAN % 80.2 % (50.0-68.0); HEMATOCRIT 36.6 % (36.0-48.0); LYMPH # 1.7 (1.2-3.4); LYMPH % 10.5 % (22.0-35.0); MEAN CELL VOLUME 72.5 fl (80.0-105.0); MEAN CORPUSCULAR HEMOGLOBIN 23.4 pg (25.0-35.0); MEAN CORPUSCULAR HGB CONC 32.2 g/dl (31.0-37.0); MEAN PLATELET VOLUME 9.5 fl (7.0-11.0); MONO # 1.5 (0.1-0.6); MONO % 9.1 % (1.0-6.0); RED CELL DISTRIBUTION WIDTH 14.9 % (11.5-14.5)
[2017-10-04] MEDS: MethylPREDNISolone 40 mg Vial IV SCH (11:35)
[2017-10-04 12:09] LABS: ALKALINE PHOSPHATASE 84 U/L (38-126); ALT/SGPT 66 U/L (7-56); AST/SGOT 28 U/L (14-36); BILIRUBIN,TOTAL 0.4 mg/dL (0.2-1.3); BLOOD UREA NITROGEN 15 mg/dL (7-21); CALCIUM 8.9 mg/dL (8.4-10.5); CARBON DIOXIDE 36 mmol/L (21-33); CHLORIDE 88 mmol/L (98-107); GFR AFRICAN-AMERICAN > 60; GLUCOSE,RANDOM 135 mg/dL (70-110); POTASSIUM 4.5 mmol/L (3.6-5.0); SODIUM 128 mmol/L (132-148); TOTAL PROTEIN 6.5 g/dL (5.8-8.3)
[2017-10-04] MEDS: Azithromycin 500MG/NS 250ml 500 MG/250 ML BAG IVPB SCH ×2 (13:18→13:57)
--- NOTE | 2017-10-04 15:41 | PN ---
DATE: 10/04/2017 LOCATION: The patient is in room 576, bed 1. REASON FOR CONSULTATION AND FOLLOWUP: Positive troponin, pneumonia, COPD, shingles, and history of smoking. SUBJECTIVE: The patient denies any chest pain, shortness of breath or palpitation. The patient is sitting in bed comfortable. PHYSICAL EXAMINATION: VITAL SIGNS: Blood pressure 136/93, respirations 20, pulse 103, and temperature 97. HEENT: Head is normocephalic. Eyes: Pupils normal. Conjunctivae slightly pale. NECK: JVP low. Carotid equal. THORAX: AP diameter normal. LUNGS: No significant rales. CARDIOVASCULAR: S1 and S2. ABDOMEN: Soft. No tenderness. No organomegaly. EXTREMITIES: No clubbing. No cyanosis. LABORATORY DATA: WBC 16.0, hemoglobin 11.8, hematocrit 36.6, and platelets 449. Sodium 128, potassium 4.5, BUN 15, creatinine 0.5, random glucose 135, AST 20, and ALT 66. Total protein 6.5 and albumin 3.3. Echo showed significant pulmonary hypertension with RSVP of 70 mmHg. LV function good with ejection fraction of 67%, moderate tricuspid regurgitation. Troponins slightly elevation may be due to hemodynamic instability, but later on troponin was negative. Only one troponin was elevated, it was 0.13, subsequent four troponins were normal and that also first elevation was slight marginally elevated. DIAGNOSES: Troponin only mildly elevated only one reading normal probably due to hemodynamic instability, pneumonia, chronic obstructive pulmonary disease, tobacco abuse, pulmonary hypertension, moderate mitral regurgitation, and shingles. PLAN: The patient is on aspirin 81 mg daily, heparin 5000 units subcutaneous q.8 hours, furosemide 40 p.o. daily, Lipitor 20 daily, metoprolol 50 mg b.i.d., Rocephin 1 g IV daily, methylprednisolone 40 mg IV q.12 hours, and azithromycin 500 mg IV daily. We will continue other medications. We will order IV Lexiscan stress test and we will follow with you. Jamil Glass MD
--- NOTE | 2017-10-04 18:52 | CP.PCM.PN ---
Subjective - Date & Time of Evaluation Date of Evaluation: 10/04/17 Time of Evaluation: 12:10 - Subjective Subjective: Comfortable in bed, no fevers, not in distress. Objective - Vital Signs/Intake and Output Vital Signs (last 24 hours): Temp Pulse Resp BP Pulse Ox 97 F L 103 H 20 136/92 H 99 10/04/17 08:17 10/04/17 08:17 10/04/17 08:17 10/04/17 08:17 10/04/17 08:17 Intake and Output: 10/04/17 10/04/17 06:59 18:59 Intake Total 540 Output Total 1200 Balance -660 - Medications Medications: Current Medications Albuterol/Ipratropium (Duoneb 3 Mg/0.5 Mg (3 Ml) Ud) 3 ml IH Q2H PRN PRN Reason: Shortness of Breath Albuterol/Ipratropium (Duoneb 3 Mg/0.5 Mg (3 Ml) Ud) 3 ml IH [id number] [facility] Last Admin: 10/04/17 07:19 Dose: 3 ml Aspirin (Aspirin Chewable) 81 mg PO DAILY [facility] Last Admin: 10/03/17 09:55 Dose: 81 mg Atorvastatin Calcium (Lipitor) 20 mg PO DIN [facility] Last Admin: 09/29/17 17:40 Dose: 20 mg Donepezil HCl (Aricept) 10 mg PO HS [facility] Last Admin: 10/03/17 21:49 Dose: 10 mg Furosemide (Lasix) 40 mg PO DAILY [facility] Haloperidol (Haldol) 2 mg PO TID [facility] PRN Reason: Protocol Last Admin: 10/03/17 17:48 Dose: 2 mg Heparin Sodium (Porcine) (Heparin) 5,000 units SC Q8H [facility] PRN Reason: Protocol Last Admin: 10/04/17 05:33 Dose: 5,000 units Azithromycin (Zithromax 500mg In Ns) 500 mg in 250 mls @ 167 mls/hr IVPB DAILY [facility] PRN Reason: Protocol Last Admin: 10/03/17 09:56 Dose: 167 mls/hr Ceftriaxone Sodium (Rocephin 1 Gram Ivpb (D5w)) 1 gm in 100 mls @ 100 mls/hr IVPB DAILY [facility] PRN Reason: Protocol Last Admin: 10/03/17 09:55 Dose: 100 mls/hr Methylprednisolone (Solu-Medrol) 40 mg IV Q12 [facility] Last Admin: 10/03/17 21:46 Dose: 40 mg Metoprolol Tartrate (Lopressor) 50 mg PO BID [facility] Last Admin: 10/03/17 17:39 Dose: 50 mg Ondansetron HCl (Zofran Inj) 4 mg IVP Q6H PRN PRN Reason: Nausea/Vomiting Pantoprazole Sodium (Protonix Ec Tab) 40 mg PO 0630 [facility] Last Admin: 10/04/17 05:34 Dose: 40 mg Valacyclovir HCl (Valtrex) 500 mg PO BID [facility] PRN Reason: Protocol Last Admin: 10/03/17 18:19 Dose: 500 mg - Labs Labs: 09/30/17 06:00 09/30/17 06:00 PT 12.7 SECONDS (9.4-12.5) H 09/28/17 08:45 INR 1.15 (0.93-1.08) H 09/28/17 08:45 APTT 29.3 Seconds (25.1-36.5) 09/29/17 05:30 - Constitutional Appears: Non-toxic - Head Exam Head Exam: NORMAL INSPECTION - Neck Exam Neck Exam: absent: Meningismus - Respiratory Exam Respiratory Exam: Decreased Breath Sounds - Cardiovascular Exam Cardiovascular Exam: +S1, +S2 - GI/Abdominal Exam GI & Abdominal Exam: Soft. absent: Tenderness Assessment and Plan - Assessment and Plan (Free Text) Assessment: Assessment R/O sepsis due to bilateral community-acquired pneumonia, on top of acute CHF blisters on lumbar/sacral area, undetermined etiology, less likely herpes zoster COPD with significant history of smoking depression cataracts dementia HTN history of depression Plan on Rocephin, Zithromax day 6; blood and urine cx are negative, sputum cx only showing normal oral lennox; PCT is elevated at 0.79 - complete 7 days of therapy urine Legionella Ag is negative ultrasound of the abdomen shows cholelithiasis but no evidence of cholecystitis blisters are unlikely Herpes zoster will continue to monitor clinically
--- NOTE | 2017-10-04 21:01 | PN ---
DATE: SUBJECTIVE: The patient is a 67-year-old, seen and examined, doing well, eating and tolerating, and minimal shortness of breath. PHYSICAL EXAMINATION: VITAL SIGNS: She is afebrile, pulse 83, respirations 20, and blood pressure 123/84. LUNGS: Bilateral fair airflow. Diffusely decreased breath sounds. HEART: S1 and S2 audible. ABDOMEN: Soft and nontender. No rebound. No guarding. NEUROLOGIC: She is awake, alert, oriented, and communicative. LABORATORY DATA: WBC is 16, hemoglobin 11.8, hematocrit 36, and platelet of 449. Chemistry: Sodium 128, potassium 4.5, chloride 88, CO2 of 36, BUN 15, creatinine 0.5, and blood sugar of 135. LFTs are within normal limits. Urinalysis is negative. ASSESSMENT: 1. Chronic obstructive pulmonary disease exacerbation. 2. Bipolar disorder. 3. Mild dementia. 4. Hyperlipidemia. 5. Abnormal liver function test seem to be improving. PLAN: Currently, the patient is stable. She can be transferred to TCU once the bed is available. We will cut down her IV steroid. We will discontinue her Zithromax after tomorrow's dose. Santosh Cabrera MD
[2017-10-05] MEDS: Albuterol-Ipratrop 3 mg / 0.5 (3 ml) UD IH SCH ×4 (01:57→20:58)
[2017-10-05] MEDS: Azithromycin 500MG/NS 250ml 500 MG/250 ML BAG IVPB SCH (09:23)
[2017-10-05] MEDS: Pantoprazole 40 mg EC Tab PO SCH (10:22)
[2017-10-05] MEDS: cefTRIAXone 1 gm 1 GM/100 ML BAG IVPB SCH (11:17)
--- NOTE | 2017-10-05 14:05 | PN ---
DATE: SUBJECTIVE: The patient is 67 years old, seen and examined, lying in bed, seemed to be comfortable. No nausea, vomiting or diarrhea. No fever. No chills. Eating and tolerating. PHYSICAL EXAMINATION: VITAL SIGNS: She is afebrile, pulse 68, respirations 20, blood pressure 117/79. LUNGS: Bilateral good airflow. No rhonchi or crackle. HEART: S1 and S2 audible. ABDOMEN: Soft. Nontender. No rebound. No guarding. NEUROLOGIC: She is awake, alert, oriented, communicative. LABORATORY DATA: There is no new lab available today. ASSESSMENT: 1. Chronic obstructive pulmonary disease exacerbation. 2. Asthmatic bronchitis, resolving. 3. History of bipolar disorder. 4. Abnormal liver function tests, seemed to be improving. 5. Deconditioning and difficulty walking. PLAN: The patient has been on a nebulizer treatment, aspirin and Haldol. She is on DVT prophylaxis. She is on Lasix as well as steroid administration to p.o. I will discontinue her Zithromax to p.o. Continue physical therapy. Awaiting transfer to subacute rehab. Santosh Cabrera MD
--- NOTE | 2017-10-05 20:03 | PN ---
DATE: 10/05/2017 SUBJECTIVE: The patient is seen earlier this morning in room 576, bed 1. No fevers and no chills. PHYSICAL EXAMINATION: VITAL SIGNS: Temperature of 98, blood pressure is 170/80, respiratory rate is 18. HEENT: Unremarkable. NECK: Supple. LUNGS: Decreased breath sounds. HEART: Normal S1, S2. ABDOMEN: Soft, nontender. LABORATORY DATA: Reveals the patient's white count is down to 16,000, it was 25,000 and granulocytosis is 80. Coagulation is noted. Chemistries revealed BUN of 15, creatinine of 0.5 with procalcitonin is 0.09. Microbiology is reviewed. ASSESSMENT AND PLAN: A 67-year-old female with sepsis due to bilateral community-acquired pneumonia on top of acute congestive heart failure with blisters on lumbar sacral area, currently on ceftriaxone, azithromycin, day number 7, microbiology is negative. We will follow closely with you. Pierre Cotter MD
[2017-10-06] MEDS: Albuterol-Ipratrop 3 mg / 0.5 (3 ml) UD IH SCH ×4 (01:25→19:52)
[2017-10-06] MEDS: Pantoprazole 40 mg EC Tab PO SCH (05:57)
[2017-10-06 08:40] VITALS: RESP 22
[2017-10-06] MEDS: cefTRIAXone 1 gm 1 GM/100 ML BAG IVPB SCH (10:04)
--- NOTE | 2017-10-06 14:26 | PN ---
DATE: 10/06/2017 SUBJECTIVE: The patient is in bed and seen earlier today and no fevers, no chills. PHYSICAL EXAMINATION: VITAL SIGNS: Temperature is 98, blood pressure is 130/70, heart rate of 102, respiratory 22. HEENT: Examination of HEENT is unremarkable. NECK: Supple. LUNGS: Have decreased breath sounds. HEART: Normal S1, S2. ABDOMEN: Soft, nontender. LABORATORY DATA: Reveals a white count of 16,000, hemoglobin is 11, platelets of 449 and coagulation is noted. Chemistries are noted and procalcitonin 0.09. Urinalysis is noted. Serology is noted. Microbiology is noted. ASSESSMENT AND PLAN: This is a 67-year-old female with sepsis with bilateral community-acquired pneumonia on top of acute congestive heart failure with blisters on the lumbosacral area, on ceftriaxone, Zithromax and microbiology is negative, so the patient is on prednisone, today is day #[address] Cabrera's note is reviewed. Pierre Cotter MD
--- NOTE | 2017-10-06 16:11 | PN ---
DATE: 10/06/2017 SUBJECTIVE: The patient has no complaints of any chest pain. No shortness of breath. No headaches. PHYSICAL EXAMINATION: VITAL SIGNS: Temperature is 98.3, pulse of 102, blood pressure 131/87, and respirations 22. GENERAL: The patient is lying in bed, flat, comfortable. HEENT: No oral lesion. Anicteric sclerae. Moist mucosa. NECK: No JVD, adenopathy, or thyromegaly. CARDIOVASCULAR: S1 and S2, regular. No murmurs, rubs, or gallops. LUNGS: Clear to auscultation bilaterally. No wheeze, rales, or rhonchi. ABDOMEN: Bowel sounds are positive, soft, nontender and nondistended. EXTREMITIES: No cyanosis, clubbing or edema. LABORATORY DATA: Sodium is 128. Creatinine is 0.5. ASSESSMENT: 1. Chronic obstructive pulmonary disease. 2. Asthma. 3. Gait dysfunction 4. Dyslipidemia. PLAN: The patient is going to continue with IV antibiotics with Rocephin. The patient is on prednisone daily. She is on Lipitor for dyslipidemia. She is on heparin for DVT prophylaxis. The patient is on nebulizer treatments. She feels that she is improving. She is wondering about going to subacute rehab. Anthony Stafford MD
[2017-10-06 17:22] VITALS: O2SAT 98
[2017-10-07] MEDS: Albuterol-Ipratrop 3 mg / 0.5 (3 ml) UD IH SCH ×3 (02:24→13:29)
[2017-10-07] MEDS: Pantoprazole 40 mg EC Tab PO SCH (05:52)
[2017-10-07 07:45] LABS: HEMATOCRIT 35.2 % (36.0-48.0); MEAN CELL VOLUME 73.5 fl (80.0-105.0); MEAN CORPUSCULAR HEMOGLOBIN 23.2 pg (25.0-35.0); MEAN CORPUSCULAR HGB CONC 31.5 g/dl (31.0-37.0); MEAN PLATELET VOLUME 9.3 fl (7.0-11.0); RED CELL DISTRIBUTION WIDTH 15.6 % (11.5-14.5)
[2017-10-07 08:15] LABS: ALB/GLOB RATIO 1.1 (1.1-1.8); ALKALINE PHOSPHATASE 60 U/L (38-126); ALT/SGPT 58 U/L (7-56); AST/SGOT 34 U/L (14-36); BILIRUBIN,TOTAL 0.4 mg/dL (0.2-1.3); BLOOD UREA NITROGEN 16 mg/dL (7-21); CARBON DIOXIDE 38 mmol/L (21-33); CHLORIDE 91 mmol/L (98-107); GFR AFRICAN-AMERICAN > 60; GLUCOSE,RANDOM 68 mg/dL (70-110); POTASSIUM 4.2 mmol/L (3.6-5.0); SODIUM 130 mmol/L (132-148); TOTAL PROTEIN 6.3 g/dL (5.8-8.3)
[2017-10-07] MEDS: cefTRIAXone 1 gm 1 GM/100 ML BAG IVPB SCH (10:07)
[2017-10-07 10:31] VITALS: BP 112/80; PULSE 92; TEMP 98.4
--- NOTE | 2017-10-07 18:19 | CP.PCM.PN ---
Subjective - Date & Time of Evaluation Date of Evaluation: 10/07/17 Time of Evaluation: 12:30 - Subjective Subjective: Comfortable, no fevers, not in distress. Objective - Vital Signs/Intake and Output Vital Signs (last 24 hours): Temp Pulse Resp BP Pulse Ox 98.4 F 92 H 22 112/80 98 10/07/17 08:00 10/07/17 08:00 10/07/17 08:00 10/07/17 08:00 10/06/17 16:00 Intake and Output: 10/07/17 10/07/17 06:59 18:59 Intake Total 720 480 Balance 720 480 - Medications Medications: Current Medications Albuterol/Ipratropium (Duoneb 3 Mg/0.5 Mg (3 Ml) Ud) 3 ml IH Q2H PRN PRN Reason: Shortness of Breath Albuterol/Ipratropium (Duoneb 3 Mg/0.5 Mg (3 Ml) Ud) 3 ml IH [id number] [facility] Last Admin: 10/07/17 07:22 Dose: 3 ml Aspirin (Aspirin Chewable) 81 mg PO DAILY [facility] Last Admin: 10/07/17 09:43 Dose: 81 mg Atorvastatin Calcium (Lipitor) 20 mg PO DIN [facility] Last Admin: 09/29/17 17:40 Dose: 20 mg Azithromycin (Zithromax) 250 mg PO DAILY [facility] PRN Reason: Protocol Last Admin: 10/07/17 09:39 Dose: 250 mg Donepezil HCl (Aricept) 10 mg PO HS [facility] Last Admin: 10/06/17 21:14 Dose: 10 mg Furosemide (Lasix) 40 mg PO DAILY [facility] Last Admin: 10/07/17 09:48 Dose: Not Given Haloperidol (Haldol) 2 mg PO TID [facility] PRN Reason: Protocol Last Admin: 10/07/17 09:39 Dose: 2 mg Ceftriaxone Sodium (Rocephin 1 Gram Ivpb (D5w)) 1 gm in 100 mls @ 100 mls/hr IVPB DAILY [facility] PRN Reason: Protocol Last Admin: 10/07/17 10:07 Dose: 100 mls/hr Metoprolol Tartrate (Lopressor) 50 mg PO BID [facility] Last Admin: 10/07/17 09:44 Dose: 50 mg Ondansetron HCl (Zofran Inj) 4 mg IVP Q6H PRN PRN Reason: Nausea/Vomiting Pantoprazole Sodium (Protonix Ec Tab) 40 mg PO 0630 [facility] Last Admin: 10/07/17 05:52 Dose: 40 mg Prednisone (Prednisone Tab) 20 mg PO BID [facility] Last Admin: 10/07/17 09:39 Dose: 20 mg Valacyclovir HCl (Valtrex) 500 mg PO BID [facility] PRN Reason: Protocol Last Admin: 10/07/17 09:39 Dose: 500 mg - Labs Labs: 10/07/17 07:00 10/07/17 07:00 PT 12.7 SECONDS (9.4-12.5) H 09/28/17 08:45 INR 1.15 (0.93-1.08) H 09/28/17 08:45 APTT 29.3 Seconds (25.1-36.5) 09/29/17 05:30 - Constitutional Appears: Non-toxic - Head Exam Head Exam: NORMAL INSPECTION - Respiratory Exam Respiratory Exam: Decreased Breath Sounds - Cardiovascular Exam Cardiovascular Exam: +S1, +S2 - GI/Abdominal Exam GI & Abdominal Exam: Soft. absent: Tenderness Assessment and Plan - Assessment and Plan (Free Text) Plan: Assessment R/O sepsis due to bilateral community-acquired pneumonia, on top of acute CHF S/ P treatment blisters on lumbar/sacral area, undetermined etiology, less likely herpes zoster COPD with significant history of smoking depression cataracts dementia HTN history of depression Plan continue to monitor off antibiotics since she is at risk for nosocomial infections
--- NOTE | 2017-10-07 18:35 | PN ---
DATE: 10/07/2017 LOCATION: The patient in room 576, bed 1. REASON FOR CONSULTATION: Followup; only one positive troponin, slightly elevated, other fours are negative; pneumonia, COPD; shingles; history of smoking; the patient also confused. SUBJECTIVE: The patient is sitting in chair without any chest pain, shortness of breath, or palpitation. The patient at the time is confused. PHYSICAL EXAMINATION: VITAL SIGNS: Blood pressure 112/80, respirations 22, pulse 92, temperature 98.4. LABORATORY DATA: Hemoglobin 11.1, hematocrit 35.2, platelets 407. Sodium 130, potassium 4.2, BUN 16, creatinine 0.5. AST 34, ALT 58. Total protein and albumin normal. DIAGNOSES: Only one troponin slightly elevated which was 0.13 and other four troponins were negative. That might have been a fall probably due to hemodynamic instability. Chronic obstructive pulmonary disease, pneumonia, chronic tobacco abuse, pulmonary hypertension, moderate mitral regurgitation, shingles. PLAN: The patient was going to have stress test today, but the patient really confused, he will not stay still into the camera, so it was canceled. The patient is on furosemide 40 daily, Lipitor 20 daily, metoprolol 50 b.i.d., prednisone 20 b.i.d. The patient has only one troponin at 0.13, the other four are negative, so we will treat the patient symptomatically at present and we will follow with you. Jamil Glass MD
--- NOTE | 2017-10-08 17:01 | DS ---
HISTORY OF PRESENT ILLNESS: The patient is 67 years old, seen and examined, doing well, eating and tolerating. No cough, no congestion, no fever, no chills. The patient came in with extreme shortness of breath. She was hypoxic, tachycardic, so she was admitted on high-flow oxygen and BiPAP, remained in ICU for 5 days, started to do well. Started to taper down the steroids, has been on nebulizer treatment, doing well. PHYSICAL EXAMINATION: GENERAL: On examination today, she is awake, alert, oriented, and communicative. VITAL SIGNS: She is afebrile, pulse 92, respirations 22, and blood pressure 112/80. LUNGS: Bilaterally diffusely clear breath sounds. HEART: S1 and S2 audible. ABDOMEN: Soft and nontender. No rebound. No guarding. NEUROLOGIC: The patient is awake, alert, oriented, communicative, and ambulatory with minimal help. LABORATORY DATA: WBC is 16, hemoglobin 11.1, hematocrit 35.2, and platelets 407. Chemistries: Sodium 130, potassium 4.2, chloride 91, CO2 of 38, BUN 16, creatinine 0.5, and blood sugar of 279. LFTs are within normal limits. ASSESSMENT: 1. Status post chronic obstructive pulmonary disease exacerbation. 2. History of bipolar disorder. 3. Deconditioning and difficulty walking. 4. Hyperlipidemia. 5. Resolving bronchitis. PLAN: Patient is currently stable, needs physical therapy, continue her on Aricept, aspirin, nebulizer treatment, Haldol 2 mg 3 times a day. Continue her on metoprolol. She is being discharged for rehab and we will continue her on medication. Santosh Cabrera MD
== END 2017-10-07 19:25 | DRG 871 ==
LOC: ED 07:44 → ERH 09:57 → CCU 12:49 → 5RSO 10-03 15:36
PROVIDERS: ADMIT Internal Medicine; ATTEND Internal Medicine
PROC: 5A09557 Assistance with Respiratory Ventilation, Greater than 96 Consecutive Hours, Continuous Positive Airway Pressure (ICD-10-PCS; principal; 2017-09-28)
PROC: 3E0F7GC Introduction of Other Therapeutic Substance into Respiratory Tract, Via Natural or Artificial Opening (ICD-10-PCS; 2017-09-28)
DX: A41.9 Sepsis, unspecified organism (principal); J18.9 Pneumonia, unspecified organism; J96.92 Respiratory failure, unspecified with hypercapnia; J96.91 Respiratory failure, unspecified with hypoxia; E87.2 Acidosis; I11.0 Hypertensive heart disease with heart failure; B02.9 Zoster without complications; E87.1 Hypo-osmolality and hyponatremia; I50.9 Heart failure, unspecified; I27.20 Pulmonary hypertension, unspecified; J44.0 Chronic obstructive pulmonary disease with (acute) lower respiratory infection; J44.1 Chronic obstructive pulmonary disease with (acute) exacerbation; F20.9 Schizophrenia, unspecified; F03.90 Unspecified dementia, unspecified severity, without behavioral disturbance, psychotic disturbance, mood disturbance, and anxiety; F31.9 Bipolar disorder, unspecified; F17.210 Nicotine dependence, cigarettes, uncomplicated; E86.0 Dehydration; H26.9 Unspecified cataract; E78.5 Hyperlipidemia, unspecified; I34.0 Nonrheumatic mitral (valve) insufficiency; R26.2 Difficulty in walking, not elsewhere classified; E11.9 Type 2 diabetes mellitus without complications; F41.9 Anxiety disorder, unspecified

== ENCOUNTER 2018-02-13 20:58 | Emergency (ER) | payer BC, MEDICARE ==
[2018-02-13 21:24] VITALS: BMI 23.9
[2018-02-13 21:53] VITALS: BP 88/28; PULSE 95; O2SAT 78
--- NOTE | 2018-02-13 22:51 | ED PDOC ---
Arrival/HPI - General Chief Complaint: Respiratory Distress Time Seen by Provider: 02/13/18 21:44 Historian: Spouse, EMS - Critical Care Critical Care Minutes: 30 minutes - History of Present Illness Narrative History of Present Illness (Text): 02/13/18 22:40 A 67 year old female, whose past medical history includes COPD, CAD, and pneumonia, is brought into the emergency department via EMS. Patient shortly upon arrival, nursing staff notified me that patient was unresponsive. On arrival the patient was on an ambulance gurney, noted to be in agonal respiration and unresponsive to verbal and tactile stimuli. The patient was emergently placed on a sitecore developer and noted to be bradycardic. The patient was intubated and Atropine was given. The patient's heart rate came up, but the patient remained unresponsive. The patient was noted to be pulse-less despite increased heart rate. The patient's heart rate was degraded. CPR was started. Patient was noted to be pulse-less. ACLS protocol was continued. See code sheet for additional information. HPI/ ROS limited due to patient's condition. PMD: Dr. Sow Time/Duration: Prior to Arrival Symptom Onset: Sudden Symptom Course: Worsening Activities at Onset: Rest, Light Context: Home Past Medical History - Provider Review Nursing Documentation Reviewed: Yes - Tetanus Immunization Tetanus Immunization: Unknown - Cardiac Hx Hypertension: Yes - Pulmonary Hx Respiratory Disorders: No - Neurological Hx Neurological Disorder: Yes Hx Dementia: Yes - HEENT Hx HEENT Disorder: Yes Hx Cataracts: Yes - Renal Hx Renal Disorder: No - Endocrine/Metabolic Hx Endocrine Disorders: No - Hematological/Oncological Hx Blood Disorders: No - Integumentary Hx Dermatological Disorder: No - Musculoskeletal/Rheumatological Hx Musculoskeletal Disorders: No - Gastrointestinal Hx Gastrointestinal Disorders: No - Genitourinary/Gynecological Hx Genitourinary Disorders: No - Psychiatric Hx Psychophysiologic Disorder: Yes Hx Anxiety: Yes Hx Bipolar Disorder: Yes Hx Depression: Yes Hx Hallucinations: Yes Hx Psychosis: Yes Hx Substance Use: No - Suicidal Assessment Feels Threatened In Home Enviroment: No Family/Social History - Physician Review Nursing Documentation Reviewed: Yes Family/Social History: No Known Family HX Smoking Status: Current Some Days Smoker Hx Alcohol Use: No Hx Substance Use: No Hx Substance Use Treatment: No Allergies/Home Meds Allergies/Adverse Reactions: Allergies No Known Allergies Allergy (Verified 02/13/18 21:23) Home Medications: Home Meds Medication Instructions Recorded Confirmed Aspirin [Aspirin Chewable] 81 mg PO DAILY 09/28/17 09/28/17 Calcium Carbonate/Vitamin D3 1 tab PO DAILY 09/28/17 09/28/17 [Calcium 600-Vit D3 800 Caplet] Donepezil [Aricept] 10 mg PO HS 09/28/17 09/28/17 Haloperidol [Haldol] 2 mg PO TID 09/28/17 09/28/17 Valsartan [Diovan] 160 mg PO DAILY 09/28/17 09/28/17 Review of Systems - Physician Review All systems were reviewed & negative as marked: Yes - Review of Systems Systems not reviewed;Unavailable: Acuity of Condition Physical Exam - Physical Exam Physical Exam Limitations: Clinical Condition Vital Signs Reviewed: Yes Vital Signs Pulse BP Pulse Ox 02/13/18 21:32 95 H 88/28 L 78 L 02/13/18 21:11 54 L 114/51 L Blood Pressure: Hypotensive Pulse: Bradycardic Respiratory Rate: Agonal Mental Status: Positive for: other (Unresponsive) - Systems Exam Head: Present: Atraumatic Pupils: Present: Other (Fixed. Unresponsive.) Pharnyx: Present: Other (ET tube in place. ) Respiratory/Chest: Present: Clear to Auscultation (Lungs clear bilaterally.), Other (no noticeable contusions) Cardiovascular: No: Regular Rate and Rhythm (No rate or rhythm) Abdomen: No: Distention Neurological: Present: Other (Unresponsive to painful stimuli. ) Medical Decision Making ED Course and Treatment: 02/13/18 22:58 Impression: A 67 year old female brought into the emergency department via EMS. Patient became unresponsive upon arrival to emergency department. Plan: -- Reassess and disposition Progress Notes: 02/13/18 22:58: Upon further information, patient was apparently with questionable history of having right sided chest pain at home s/p fall or before. History remains unclear. The patient became unresponsive upon arrival to emergency department. Following prolonged attempt to resuscitate, patient remained unresponsive. The patient was subsequently pronounced. The patient's family was notified as well as the medical imaging director. 02/13/18 22:50: Patient's arrived to the emergency department. Upon further questioning, the patient's states that she was not feeling well this evening and he found her slumped over a radiator. He notes that the patient may have fallen but is unsure. He notes that at the time she stated that she did not feel well and went to lay down in bed for a period of time. The patient defecated on herself at one point. He states that he cleaned her and the patient went to bed again. The patient summoned him stating that she did not feel well and stated that she wanted to go to the hospital. He then called 911 to have the patient transported to the emergency department. PROCEDURE: INTUBATION Performed by the emergency provider Time: 21:16 Consent: Discussion of the risks, benefits, and alternatives to the procedure, along with informed consent was precluded by the urgency of the procedure and the patient condition. Timeout: A timeout to verify the correct patient, procedure, and site was performed. Indication: Respiratory Failure Pre-oxygenation: [id number] Medications: See MAR for details. ETT Size: 8 Confirmation: Cords directly visualized as tube passed, good bilateral breath sounds, positive CO2 detector color change, tube fogging, adequate chest rise, improving pulse oximetry reading, improved skin color, and absence of gastric sounds,. ETT Secured: The cuff was inflated and the tube was secured appropriately at a distance of 24 cm at the lip. Post-Procedure: There were no immediate complications. CXR Confirmation: No 02/13/18 23:23: Case discussed with medical imaging director who will contact her PMD . . - Critical Care Critical Care Minutes: 30 minutes - Scribe Statement The provider has reviewed the documentation as recorded by the Ottoibsandra Reddy Provider Scribe Attestation: All medical record entries made by the Scribe were at my direction and personally dictated by me. I have reviewed the chart and agree that the record accurately reflects my personal performance of the history, physical exam, medical decision making, and the department course for this patient. I have also personally directed, reviewed, and agree with the discharge instructions and disposition. Disposition/Present on Arrival - Present on Arrival Any Indicators Present on Arrival: No History of DVT/PE: No History of Uncontrolled Diabetes: No Urinary Catheter: No History of Decub. Ulcer: No History Surgical Site Infection Following: None - Disposition Have Diagnosis and Disposition been Completed?: Yes Diagnosis: Cardiac arrest Disposition: WITH WITHOUT AUTOPSY Disposition Time: 21:43 Condition: Referrals: Humera Sow DO [Primary Care Provider] - Follow up with primary Forms: [employer] (Thai)
--- NOTE | 2018-02-15 09:25 | CARD ---
APPROVED REPORT EKG Measurement Heart [id number] <Conclusion> Sinus bradycardia with occasional premature ventricular complexes, new STTW changes, new
== END 2018-02-14 01:00 ==
LOC: ED 20:58
DX: I46.9 Cardiac arrest, cause unspecified (principal)